=== PATIENT | female | born 1940 | race Caucasian/White ===

== ENCOUNTER 2022-05-23 23:53 | Outpatient (REF) | payer BC, SELFPAY ==
[2022-05-24 08:17] LABS: SARS PCR* ND (Negative)
[2022-05-24 08:18] LABS: PCR FLU A POSITIVE PCR FLU A (Negative); PCR FLU B Negative PCR FLU B (Negative)
== END 2022-05-23 23:54 | disposition home or self-care (01) ==
LOC: LAB 23:53
PROVIDERS: PCP Family Medicine; Visit Provider Nurse Practitioner Adult Health
DX: J10.1 Influenza due to other identified influenza virus with other respiratory manifestations (principal)
CPT/HCPCS: 87631

== ENCOUNTER 2022-06-22 17:23 | Outpatient (REF) | payer BC, SELFPAY ==
[2022-06-22 18:32] LABS: Basophils Percent Auto 0.2 % (0.0-3.0); Eosinophils Percent Auto 1.8 % (0.0-7.0); Hematocrit 38.3 % (33.0-51.0); Hemoglobin* 11.8 gm/dL (12.0-16.0); Immature Granulocytes Pct Auto 2.7 %; Lymphocytes Percent Auto 7.4 % (20-44); Mean Corpuscular HGB Conc 31 gm/dL (32-36); Mean Corpuscular Hemoglobin 24 pg (26-34); Mean Corpuscular Volume 78 fL (80-100); Monocytes Percent Auto 5.5 % (0.0-11.0); Neutrophils Percent Auto 82.4 % (42.0-72.0); Platelet Count* 606 K/uL (140-440); RDW Coefficient of Variation % 17.5 % (11.5-15.5); White Blood Count* 13.57 K/uL (4.50-11.00)
[2022-06-22 18:41] LABS: Chloride* 100 mmol/L (96-114); Potassium* 4.8 mmol/L (3.6-5.1); Sodium* 133 mmol/L (135-149)
[2022-06-22 18:44] LABS: Blood Urea Nitrogen* 48 mg/dL (7-30); Carbon Dioxide* 24 mmol/L (20-32); Creatinine* 1.2 mg/dL (0.5-1.5); Estimated Glomerular Filt Rate 45 ml/min
[2022-06-22 18:45] LABS: Calcium* 9.6 mg/dL (8.4-10.6); Glucose* 150 mg/dL (60-115); Phosphorus* 4.4 mg/dL (2.5-4.5); Slide Review Reflex No
== END 2022-06-22 17:24 | disposition home or self-care (01) ==
LOC: LAB 17:23
PROVIDERS: PCP Family Medicine; Visit Provider Nurse Practitioner Adult Health
DX: N18.9 Chronic kidney disease, unspecified (principal); R13.10 Dysphagia, unspecified
CPT/HCPCS: 36415; 80048; 82310; 83970; 84100; 85025

== ENCOUNTER 2022-06-30 14:21 | Outpatient (CLI) | payer BC, SELFPAY | END 2022-06-30 14:22 | disposition home or self-care (01) | LOC: AMB 07-04 09:34 | PROVIDERS: PCP Family Medicine; Visit Provider Family Medicine | DX: R10.9 Unspecified abdominal pain (principal) | CPT/HCPCS: A0425; A0427 ==

== ENCOUNTER 2022-06-30 14:51 | Emergency (ER) | payer BC, SELFPAY ==
[2022-06-30 14:55] VITALS: BP 145/71; PULSE 95; RESP 24; TEMP 36.6; O2SAT 97
--- NOTE | 2022-06-30 15:27 | ED.ABDPAIN ---
HPI - Abdominal Pain General Time Seen by Provider: 15:27 <Sakina Basurto MD - Last Filed: 07/02/22 11:24> Date Seen: 06/30/22 <Sakina Basurto MD - Last Filed: 07/02/22 11:24> Chief Complaint: Abdominal Pain <Sakina Basurto MD - Last Filed: 07/02/22 11:24> Stated Complaint: Uncontrolled pain <Sakina Basurto MD - Last Filed: 07/02/22 11:24> Time Seen by Provider: 06/30/22 15:26 <Sakina Basurto MD - Last Filed: 07/02/22 11:24> Source: patient, EMS and RN notes reviewed <Sakina Basurot MD - Last Filed: 07/02/22 11:24> Mode of arrival: EMS <Sakina Basurto MD - Last Filed: 07/02/22 11:24> Limitations: no limitations <Sakina Basurto MD - Last Filed: 07/02/22 11:24> History of Present Illness HPI narrative: Patient is an 81-year-old female brought in from [address] [place] [address] with complaint of pain from her shoulder, right chest down into her abdomen. She states that it is not hurting with movement of her shoulder. When I try to go in to talk to patient, she states she can not talk to me because her lips and mouth her too dry, she is requesting something to wet her mouth before she will talk to me. Then she states she has too much phlegm and cannot talk to me. Patient has gotten 2 tablets of 5 mg oxycodone as noted in nursing staff notes. 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 They did give her some fentanyl EN route. Patient was last seen on 06/28/2022. She has a complex medical history and was hospitalized with a stroke in March of 2022 involving the left parasagittal occipital lobe in the posterior cerebral artery territory with symptoms of confusion and vision changes. Currently on atorvastatin and rivaroxaban. I do note that she was initially started on dual antiplatelet therapy with aspirin and Plavix but see that she is on the NOAC currently. She had a PEG tube placed April 14 for dysphagia. She does have an adrenal tumor that may be causing some orthostatic hypotension, has seen Endocrinology in the past. They are considering starting phenoxybenzamine for this. She has chronic excessive phlegm thought to be due to her COPD. She also had influenza May 24 of this year and received Tamiflu. On the of this month, was showing fever and hypoxia they did start Augmentin 875 mg b.i.d. and ordered a chest x-ray. They did order supplemental p.r.n. oxygen again on June 27 she tells me she still having fevers the last 2 days up to 100. She is taking small sips of fluids but reportedly has a video swallow that is scheduled for later this week. 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 I see retroperitoneal lymphadenopathy listed in her chart, unknown when that last imaging was done but was thought to be suspicious for recurrence of adrenal tumor verses very indolent pheochromocytoma/adrenal cortical carcinoma, cognitive impairment, thrombophilia with history of PE/DVT, depression with anxiety, stage II pressure injury of buttock. <Sakina Basurto MD - Last Filed: 07/02/22 11:24> Related Data Home Medications: Home Medications Medication Instructions Recorded Confirmed acetaminophen 500 mg tablet 1,000 mg feeding tube 3XD PRN 06/30/22 06/30/22 albuterol sulfate 2.5 mg/3 mL 1 mg inhalation Q4H PRN 06/30/22 06/30/22 (0.083 %) solution for nebulization albuterol sulfate 90 mcg/actuation 2 puff inhalation Q4H PRN 06/30/22 06/30/22 aerosol inhaler (Ventolin HFA) amoxicillin 875 mg-potassium 1 tab PO BID 06/30/22 06/30/22 clavulanate 125 mg tablet carboxymethylcellulose sodium 1 % 2 drp ophthalmic (eye) TID PRN 06/30/22 06/30/22 eye drops (Artificial Tears (carboxymethylcellulose)) fluticasone propionate 50 1 spray intranasal DAILY 06/30/22 06/30/22 mcg/actuation nasal spray,suspension hydrocortisone acetate 10 % (80 1 appful WI 06/30/22 mg) rectal foam (Cortifoam) loperamide 2 mg capsule 2 mg feeding tube QID PRN 06/30/22 06/30/22 melatonin 3 mg tablet 3 mg feeding tube QPM PRN 06/30/22 06/30/22 oxycodone 5 mg tablet 5 mg feeding tube Q4H PRN 06/30/22 06/30/22 rivaroxaban 15 mg tablet (Xarelto) 15 mg PO DAILY 06/30/22 06/30/22 sertraline 50 mg tablet 50 mg feeding tube DAILY 06/30/22 06/30/22 sodium chloride 0.65 % nasal spray 2 spray intranasal Q4H PRN 06/30/22 06/30/22 aerosol (Saline Nasal) sodium chloride-hypochlorous acid 1 irrig topical BID 06/30/22 06/30/22 0.033 % irrigation solution (Vashe Wound Therapy) Previous Rx's Medication Instructions Recorded amoxicillin 400 mg-potassium 11 ml PO BID 3 days #66 mL 06/30/22 clavulanate 57 mg/5 mL oral suspension gabapentin 300 mg/6 mL (6 mL) oral 300 mg (6 mL) PO BID for pain #240 06/30/22 solution mL <Sakina Basurto MD - Last Filed: 07/02/22 11:24> Allergies/Adverse Reactions: Allergies Allergy/AdvReac Type Severity Reaction Status Date / Time sulfamethoxazole Allergy Severe Verified 06/30/22 15:20 [From Septra] trimethoprim [From Septra] Allergy Severe Verified 06/30/22 15:20 atorvastatin [From Lipitor] Allergy Mild Edema Verified 06/30/22 15:20 baclofen Allergy Mild Verified 06/30/22 15:20 ciprofloxacin Allergy Mild Altered Verified 06/30/22 15:20 Sense of Taste lovastatin [From Mevacor] Allergy Mild edema Verified 06/30/22 15:20 metronidazole [From Flagyl] Allergy Mild Hives Verified 06/30/22 15:20 tramadol Allergy Mild Hives Verified 06/30/22 15:20 <Sakina Basurto MD - Last Filed: 07/02/22 11:24> Review of Systems Status of ROS Reports: unobtainable due to mental status (Patient seemingly almost hysterical at times.) <Sakina Basurto MD - Last Filed: 07/02/22 11:24> [facility] Medical History: Medical History (Updated 06/30/22 @ 19:31 by Arturo Ramos MD) Hyperlipemia ?E78.5 - Hyperlipidemia, unspecified (ICD-10) Restless leg syndrome ?G25.81 - Restless legs syndrome (ICD-10) CKD (chronic kidney disease) stage 3, GFR 30-59 ml/min ?N18.30 - Chronic kidney disease, stage 3 unspecified (ICD-10) Mild cognitive impairment of uncertain or unknown etiology ?G31.84 - Mild cognitive impairment of uncertain or unknown etiology (ICD-10) Ventral hernia ?K43.9 - Ventral hernia without obstruction or gangrene (ICD-10) Diplopia ?H53.2 - Diplopia (ICD-10) Postprocedural adrenal medullary hypofunction ?E89.6 - Postprocedural adrenocortical (-medullary) hypofunction (ICD-10) Personal history of pulmonary embolism ?Z86.711 - Personal history of pulmonary embolism (ICD-10) Secondary hyperparathyroidism of renal origin ?N25.81 - Secondary hyperparathyroidism of renal origin (ICD-10) 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-10) GERD without esophagitis ?K21.9 - Gastro-esophageal reflux disease without esophagitis (ICD-10) Candidal stomatitis ?B37.0 - Candidal stomatitis (ICD-10) Pressure ulcer ?L89.90 - Pressure ulcer of unspecified site, unspecified stage (ICD-10) Ulcerative rectosigmoiditis with rectal bleeding ?K51.311 - Ulcerative (chronic) rectosigmoiditis with rectal bleeding (ICD-10) Dysphagia ?R13.10 - Dysphagia, unspecified (ICD-10) Anxiety ?F41.9 - Anxiety disorder, unspecified (ICD-10) CVA (cerebral vascular accident) ?I63.9 - Cerebral infarction, unspecified (ICD-10) COPD (chronic obstructive pulmonary disease) ?J44.9 - Chronic obstructive pulmonary disease, unspecified (ICD-10) <Sakina Basurto MD - Last Filed: 07/02/22 11:24> Surgical History: Surgical History (Updated 05/11/23 @ 16:11 by Codi Zuñiga RN) PEG (percutaneous endoscopic gastrostomy) status ?Z93.1 - Gastrostomy status (ICD-10) <Sakina Basurto MD - Last Filed: 07/02/22 11:24> Social History: Social History Smoking Status: Never smoker Do you use any of these nicotine containing products: None Second hand tobacco smoke exposure: No How often do you have a drink containing alcohol: never AUDIT-C Alcohol total score: 0 Non-prescribed substance use: denies use <Sakina Basurto MD - Last Filed: 07/02/22 11:24> Exam Const: Vital Signs, click to edit/add: Vital Signs - 24 hr 06/30/22 14:55 06/30/22 18:30 06/30/22 18:36 Temperature 98 F Pulse Rate [Right Pulse Oximeter] 95 89 Respiratory Rate 24 18 Blood Pressure [Ri ght Upper Arm] 145/71 H 150/64 H Pulse Oximetry 97 96 95 Oxygen Delivery Me thod Room Air Room Air The very animated, almost hysterical at times. Pupils equal round reactive, sclera clear. Symmetrical facial function. Seems to be edentulous, mildly dry mucous membranes, lips without any cracking. Neck is supple no masses. Does not give me good respiratory exam but do not hear any wheezing crackles, definitely has kyphosis. CV regular rate and rhythm no murmur. Abdomen has middle per 2 rinse which I a do not know if it is a large hernia but feel it is probably diastasis rectus that is significant. She complains of significant pain when I palpate anywhere in her abdomen. Bowel sounds are increased in intensity but I do not hear any rushing. I can mobilize her shoulder and she does not complaining of any pain, no palpable tenderness over the shoulder anterior chest wall. No lower extremities. Seems to be moving all of her arms and legs equally. <Sakina Basurto MD - Last Filed: 07/02/22 11:24> Vital Signs, click to edit/add: Vital Signs - 24 hr 06/30/22 14:55 06/30/22 18:30 06/30/22 18:36 Temperature 98 F Pulse Rate [Right Pulse Oximeter] 95 89 Respiratory Rate 24 18 Blood Pressure [Ri ght Upper Arm] 145/71 H 150/64 H Pulse Oximetry 97 96 95 Oxygen Delivery Me thod Room Air Room Air <Arturo Ramos MD - Last Filed: 07/01/22 04:27> Course Course Hospital Course: Patient has a very complex medical history, will proceed with CT of her chest abdomen pelvis given the recent concern of fever and respiratory symptoms as well as her increased complaint of abdominal pain overnight. She does tell me that the abdominal pain is worse than what is listed as her chronic abdominal pain in her chart. We did find notation where she complains of chronic right abdominal pain. Will get a full complement of labs. She will also be considered for cardiac etiology with the right shoulder pain. It certainly could be that the right shoulder pain is referred pain from the abdomen. Patient is on a NOAC, if there is any significant intra-abdominal pathology that might require surgery, this patient is not a candidate for us. She tells me she had her feeding tube placed at [facility]. Will be signing care over to my partner Dr. Ramos. <Sakina Basurto MD - Last Filed: 07/02/22 11:24> Vital Signs Vital signs: Initial Vital Signs Temperature 98 F 06/30/22 14:55 Temperature Source Oral 06/30/22 14:55 Pulse Rate 95 06/30/22 14:55 Pulse Rhythm Regular 06/30/22 14:55 Pulse Strength 3+ Normal 06/30/22 14:55 Respiratory Rate 24 06/30/22 14:55 Blood Pressure 145/71 H 06/30/22 14:55 Blood Pressure Mean 95 06/30/22 14:55 Blood Pressure Position Semi-Fowlers 06/30/22 14:55 Pulse Oximetry 97 06/30/22 14:55 Oxygen Delivery Method Room Air 06/30/22 14:55 Vital Signs Temperature 98 F 06/30/22 14:55 Pulse Rate 95 06/30/22 14:55 Respiratory Rate 24 06/30/22 14:55 Blood Pressure 145/71 H 06/30/22 14:55 Pulse Oximetry 97 06/30/22 14:55 Oxygen Delivery Method Room Air 06/30/22 14:55 Temperature 98 F 06/30/22 14:55 Pulse Rate 89 05/11/23 18:36 Respiratory Rate 18 06/30/22 18:36 Blood Pressure 150/64 H 06/30/22 18:36 Pulse Oximetry 95 06/30/22 18:36 Oxygen Delivery Method Room Air 06/30/22 18:36 <Sakina Basurto MD - Last Filed: 07/02/22 11:24> Initial Vital Signs Temperature 98 F 06/30/22 14:55 Temperature Source Oral 06/30/22 14:55 Pulse Rate 95 06/30/22 14:55 Pulse Rhythm Regular 06/30/22 14:55 Pulse Strength 3+ Normal 06/30/22 14:55 Respiratory Rate 24 06/30/22 14:55 Blood Pressure 145/71 H 06/30/22 14:55 Blood Pressure Mean 95 06/30/22 14:55 Blood Pressure Position Semi-Fowlers 06/30/22 14:55 Pulse Oximetry 97 06/30/22 14:55 Oxygen Delivery Method Room Air 06/30/22 14:55 Vital Signs Temperature 98 F 06/30/22 14:55 Pulse Rate 95 06/30/22 14:55 Respiratory Rate 24 06/30/22 14:55 Blood Pressure 145/71 H 06/30/22 14:55 Pulse Oximetry 97 06/30/22 14:55 Oxygen Delivery Method Room Air 06/30/22 14:55 Temperature 98 F 06/30/22 14:55 Pulse Rate 89 06/30/22 18:36 Respiratory Rate 18 06/30/22 18:36 Blood Pressure 150/64 H 06/30/22 18:36 Pulse Oximetry 95 06/30/22 18:36 Oxygen Delivery Method Room Air 06/30/22 18:36 <Arturo Ramos MD - Last Filed: 07/01/22 04:27> MDM - Abdominal Pain MDM Narrative Medical decision making narrative: Rachel -- received Ms. Zapata in handoff at change of shift. Pending CT abdomen pelvis. White count somewhat elevated at 14.2 and was similarly elevated 4 days ago when Augmentin was initiated. BUN of 48 creatinine 1.2 urinalysis still pending. EKG noted here by my read normal sinus rhythm rate of 84; do not see acute ischemic changes. CT scan with contrast of chest abdomen pelvis Ordering Physician: Sakina Basurto.D. Date of Service: 06/30/22 Procedure(s): CT chest abdomen pelv w con Accession Number(s): [id number] cc: Alfonzo Webb M.D.; Sakina Basurto M.D.~ For Patients:? As a result of the Cures Act, medical imaging exams and procedure reports are released immediately into your electronic medical record.? You may view this report before your referring provider.? If you have questions, please contact your health care provider. INDICATION: Pneumonia, increased abdominal pain TECHNIQUE: CT chest, abdomen and pelvis acquired with 55 cc Isovue 370 intravenous contrast. COMPARISON: None. FINDINGS: CHEST: Cardiovascular structures: No pericardial effusion. Severe coronary atherosclerosis. 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 Mediastinum and mireya: Precarinal lymph nodes measure up to 18 millimeters in short axis. Right hilar lymph nodes measure up to 12 millimeters in short axis. Left hilar lymph nodes measure 15 millimeters in short axis. Subcarinal lymph nodes measure 15 millimeters in short axis. Lungs and pleura: Trace right pleural effusion. Centrilobular emphysema with minimal centrilobular nodularity within the right upper lobe. More focal consolidation in the bilateral lower lobes. Chest wall and axilla: No mass or adenopathy.? Bones: No suspicious bone lesions.? Unremarkable for age.? ABDOMEN AND PELVIS: Liver: Unremarkable.? Gallbladder and bile ducts: Status post cholecystectomy. Pancreas: Mild pancreatic atrophy. Spleen: Unremarkable.? Adrenal glands: Status post right adrenalectomy. Left adrenal nodule measuring 11 millimeters in short axis. Kidneys: Bilateral renal cortical thinning without evidence of hydronephrosis. Subcentimeter hypodensities in the right kidney which is too small for characterization. GI tract: Gastrostomy tube at level of the stomach with the stomach decompressed. Ventral supraumbilical hernia with colon in the hernia sac without evidence of obstruction. No dilated loops of large or small intestine. Mild colonic diverticulosis. Vascular structures: Dilation of the abdominal aorta measuring 4.1 centimeters at the level of the aortic hiatus. This tapers to 2.9 centimeters at the level of the SMA origin. Aorta measures 2.9 centimeters above the bifurcation. Pelvic Organs: Air within the bladder lumen. Status posthysterectomy. No adnexal mass. Bones: Status post right total hip replacement. Degenerative disc disease lumbar spine. IMPRESSION: 1. Trace right pleural effusion with consolidation of bilateral lower lobes suspicious for pneumonia. 2. Air within the bladder lumen. Differential diagnosis includes cystitis and recent instrumentation. 3. Ventral supraumbilical hernia with colon in the hernia sac although without evidence of obstruction. 4. Fusiform enlargement of the abdominal aorta reaching 4.1 centimeters at the level of the aortic hiatus. 5. Mediastinal and bilateral hilar adenopathy. This is indeterminate although suspect secondary to the underlying pulmonary process. 6. Other incidental findings as detailed above. Ms. Zapata had requested more pain medication during her time. Did give 1 dose of fentanyl. I reviewed these findings, or lack there of with Ms. Zapata. I think Augmentin is still appropriate though would extend course a little bit for these pulmonary findings. Should cover bladder issue too I suppose. Somewhat hypesthetic in exam still complaining of right sided pain from her shoulder all the way down to her right hip. No discrete area of tenderness. Discussed regional nature of this pain and offered reassurance. Ultimately she did except no clear cause and anticipated discharge. Seemed suddenly improved and less demonstrative. See patient discharge plan <Arturo Ramos MD - Last Filed: 07/01/22 04:27> Lab Data Attestation: I reviewed the patient's lab results. <Arturo Ramos MD - Last Filed: 07/01/22 04:27> Labs: Lab Results 06/30/22 06/30/22 06/30/22 Range/Units 15:41 15:55 15:57 WBC 14.20 H (4.50-11.00) K/uL RBC 4.72 (4.00-5.20) m/uL Hgb 11.3 L (12.0-16.0) gm/dL Hct 36.8 (33.0-51.0) % MCV 78 L (80-100) fL MCH 24 L (26-34) pg MCHC 31 L (32-36) gm/dL RDW Coeff of Gina 17.4 H (11.5-15.5) % Plt Count 465 H (140-440) K/uL Neut % (Auto) 87.8 H (42.0-72.0) % Lymph % (Auto) 4.9 L (20-44) % Letcher % (Auto) 5.9 (0.0-11.0) % Eos % (Auto) 0.8 (0.0-7.0) % Baso % (Auto) 0.1 (0.0-3.0) % Neut # (Auto) 12.50 H (1.7-7.0) K/uL Lymph # (Auto) 0.70 L (0.90-2.90) K/uL Letcher # (Auto) 0.80 (0.00-0.90) K/UL Eos # (Auto) 0.10 (0.00-0.50) K/uL Baso # (Auto) 0.00 (0.00-0.30) K/uL VBG pH 7.463 H (7.32-7.43) VBG pCO2 33 L (40-50) mmHG VBG pO2 27.0 (25-47) mmHG VBG HCO3 23 (21-28) mmol/L Sodium 134 L (135-149) mmol/L Potassium 4.4 (3.6-5.1) mmol/L Chloride 105 (96-114) mmol/L Carbon Dioxide 20 (20-32) mmol/L BUN 48 H (7-30) mg/dL Creatinine 1.2 (0.5-1.5) mg/dL Estimated GFR 45 ml/min Glucose 115 (60-115) mg/dL Lactate 0.8 (0.5-1.9) mmol/L Calcium 9.8 (8.4-10.6) mg/dL Total Bilirubin 0.6 (0.1-1.5) mg/dL AST 17 (12-35) U/L ALT 17 (4-35) U/L Alkaline Phosphatase 85 (40-150) U/L Troponin I < 0.01 L (0.01-0.04) ng/mL C-Reactive Protein 8.9 H (0.5-1.0) mg/dL Total Protein 6.9 (6.0-8.3) g/dL Albumin 3.9 (3.3-5.0) g/dL Lipase 198 (23-300) U/L Procalcitonin 0.38 (<0.50) ng/mL Urine Color Yellow (Yellow) Urine Appearance Clear (Clear) Urine pH 8.5 (5.0-8.5) Ur Specific Harrison 1.020 (1.000-1.030) Urine Protein 2+ A (Negative) Urine Glucose (UA) Negative (Negative) Urine Ketones Negative (Negative) Urine Blood Negative (Negative) Urine Nitrite Negative (Negative) Urine Bilirubin Negative (Negative) Urine Urobilinogen 0.2 (0.2-1.0) Ur Leukocyte Esterase Trace A (Negative) Urine RBC 0-2 (0-2) Urine WBC 0-2 (0-5) Ur Squamous Epith Cells None (None-Few) Urine Bacteria None (None) SARS-CoV-2 (PCR) Negative SARS-CoV-2 (Negative) Influenza Type A (PCR) Negative PCR FLU A (Negative) Influenza Type B (PCR) Negative PCR FLU B (Negative) RSV (PCR) Negative PCR RSV (Negative) Lab Acknowledgement Test Added <Sakina Basurto MD - Last Filed: 07/02/22 11:24> Lab Results 06/30/22 06/30/22 06/30/22 Range/Units 15:41 15:55 15:57 WBC 14.20 H (4.50-11.00) K/uL RBC 4.72 (4.00-5.20) m/uL Hgb 11.3 L (12.0-16.0) gm/dL Hct 36.8 (33.0-51.0) % MCV 78 L (80-100) fL MCH 24 L (26-34) pg MCHC 31 L (32-36) gm/dL RDW Coeff of Gina 17.4 H (11.5-15.5) % Plt Count 465 H (140-440) K/uL Neut % (Auto) 87.8 H (42.0-72.0) % Lymph % (Auto) 4.9 L (20-44) % Letcher % (Auto) 5.9 (0.0-11.0) % Eos % (Auto) 0.8 (0.0-7.0) % Baso % (Auto) 0.1 (0.0-3.0) % Neut # (Auto) 12.50 H (1.7-7.0) K/uL Lymph # (Auto) 0.70 L (0.90-2.90) K/uL Letcher # (Auto) 0.80 (0.00-0.90) K/UL Eos # (Auto) 0.10 (0.00-0.50) K/uL Baso # (Auto) 0.00 (0.00-0.30) K/uL VBG pH 7.463 H (7.32-7.43) VBG pCO2 33 L (40-50) mmHG VBG pO2 27.0 (25-47) mmHG VBG HCO3 23 (21-28) mmol/L Sodium 134 L (135-149) mmol/L Potassium 4.4 (3.6-5.1) mmol/L Chloride 105 (96-114) mmol/L Carbon Dioxide 20 (20-32) mmol/L BUN 48 H (7-30) mg/dL Creatinine 1.2 (0.5-1.5) mg/dL Estimated GFR 45 ml/min Glucose 115 (60-115) mg/dL Lactate 0.8 (0.5-1.9) mmol/L Calcium 9.8 (8.4-10.6) mg/dL Total Bilirubin 0.6 (0.1-1.5) mg/dL AST 17 (12-35) U/L ALT 17 (4-35) U/L Alkaline Phosphatase 85 (40-150) U/L Troponin I < 0.01 L (0.01-0.04) ng/mL C-Reactive Protein 8.9 H (0.5-1.0) mg/dL Total Protein 6.9 (6.0-8.3) g/dL Albumin 3.9 (3.3-5.0) g/dL Lipase 198 (23-300) U/L Procalcitonin 0.38 (<0.50) ng/mL Urine Color Yellow (Yellow) Urine Appearance Clear (Clear) Urine pH 8.5 (5.0-8.5) Ur Specific Harrison 1.020 (1.000-1.030) Urine Protein 2+ A (Negative) Urine Glucose (UA) Negative (Negative) Urine Ketones Negative (Negative) Urine Blood Negative (Negative) Urine Nitrite Negative (Negative) Urine Bilirubin Negative (Negative) Urine Urobilinogen 0.2 (0.2-1.0) Ur Leukocyte Esterase Trace A (Negative) Urine RBC 0-2 (0-2) Urine WBC 0-2 (0-5) Ur Squamous Epith Cells None (None-Few) Urine Bacteria None (None) SARS-CoV-2 (PCR) Negative SARS-CoV-2 (Negative) Influenza Type A (PCR) Negative PCR FLU A (Negative) Influenza Type B (PCR) Negative PCR FLU B (Negative) RSV (PCR) Negative PCR RSV (Negative) Lab Acknowledgement Test Added <Arturo Ramos MD - Last Filed: 07/01/22 04:27> Discharge Plan Discharge Clinical Impression: Pain, Pneumonia <Sakina Basurto MD - Last Filed: 07/02/22 11:24> Patient Disposition: Home w/ Parent or Adult <Sakina Basurto MD - Last Filed: 07/02/22 11:24> Condition: Improved <Sakina Basurto MD - Last Filed: 07/02/22 11:24> Additional Instructions: I am not exactly sure why you're having pain. It might be related to this pneumonia which has amplified your perceptions of pain. If this continues perhaps a medication like gabapentin would be appropriate. I would discuss this with your primary care providers. In the meantime you do have oxycodone available. Again take care not to become constipated. Would continue your Augmentin at this time to complete a total course of 10 days. I have ordered an extra 3 days for you. <Sakina Basurto MD - Last Filed: 07/02/22 11:24> Prescriptions: New gabapentin 300 mg/6 mL (6 mL) solution 300 mg PO BID Qty: 240 0RF amoxicillin-pot clavulanate 400-57 mg/5 mL suspension for reconstitution 11 ml PO BID 3 Days Qty: 66 0RF Rx Instructions: Add to current Augmentin prescription to complete a total of 10 days No Action albuterol sulfate 2.5 mg /3 mL (0.083 %) solution for nebulization 1 mg inhalation Q4H PRN loperamide 2 mg capsule 2 mg feeding tube QID PRN melatonin 3 mg tablet 3 mg feeding tube QPM PRN acetaminophen 500 mg tablet 1,000 mg feeding tube 3XD PRN albuterol sulfate [Ventolin HFA] 90 mcg/actuation HFA aerosol inhaler 2 puff inhalation Q4H PRN fluticasone propionate 50 mcg/actuation spray,suspension 1 spray INTRANASAL DAILY sertraline 50 mg tablet 50 mg feeding tube DAILY amoxicillin-pot clavulanate 875-125 mg tablet 1 tab PO BID oxycodone 5 mg tablet 5 mg feeding tube Q4H PRN Saline Nasal 0.65 % aerosol,spray 2 spray INTRANASAL Q4H PRN Cortifoam 10 % (80 mg) foam 1 appful WI Xarelto 15 mg tablet 15 mg PO DAILY Vashe Wound Therapy 0.033 % irrigation solution 1 irrig topical BID Artificial Tears (cmc) 1 % drops 2 drp ophthalmic (eye) TID PRN <Sakina Basurto MD - Last Filed: 07/02/22 11:24> Follow Up/Referrals: Alfonzo Webb MD [Primary Care Provider] - <Sakina Basurto MD - Last Filed: 07/02/22 11:24> [facility] <Sakina Basurto MD - Last Filed: 07/02/22 11:24>
--- NOTE | 2022-06-30 15:32 | CRLHL7_ITS ---
For Patients: As a result of the Century Cures Act, medical imaging exams and procedure reports are released immediately into your electronic medical record. You may view this report before your referring provider. If you have questions, please contact your health care provider. INDICATION: Pneumonia, increased abdominal pain TECHNIQUE: CT chest, abdomen and pelvis acquired with 55 cc Isovue 370 intravenous contrast. COMPARISON: None. FINDINGS: CHEST: Cardiovascular structures: No pericardial effusion. Severe coronary atherosclerosis. 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 Mediastinum and mireya: Precarinal lymph nodes measure up to 18 millimeters in short axis. Right hilar lymph nodes measure up to 12 millimeters in short axis. Left hilar lymph nodes measure 15 millimeters in short axis. Subcarinal lymph nodes measure 15 millimeters in short axis. Lungs and pleura: Trace right pleural effusion. Centrilobular emphysema with minimal centrilobular nodularity within the right upper lobe. More focal consolidation in the bilateral lower lobes. Chest wall and axilla: No mass or adenopathy. Bones: No suspicious bone lesions. Unremarkable for age. ABDOMEN AND PELVIS: Liver: Unremarkable. Gallbladder and bile ducts: Status post cholecystectomy. Pancreas: Mild pancreatic atrophy. Spleen: Unremarkable. Adrenal glands: Status post right adrenalectomy. Left adrenal nodule measuring 11 millimeters in short axis. Kidneys: Bilateral renal cortical thinning without evidence of hydronephrosis. Subcentimeter hypodensities in the right kidney which is too small for characterization. GI tract: Gastrostomy tube at level of the stomach with the stomach decompressed. Ventral supraumbilical hernia with colon in the hernia sac without evidence of obstruction. No dilated loops of large or small intestine. Mild colonic diverticulosis. Vascular structures: Dilation of the abdominal aorta measuring 4.1 centimeters at the level of the aortic hiatus. This tapers to 2.9 centimeters at the level of the SMA origin. Aorta measures 2.9 centimeters above the bifurcation. Pelvic Organs: Air within the bladder lumen. Status posthysterectomy. No adnexal mass. Bones: Status post right total hip replacement. Degenerative disc disease lumbar spine. IMPRESSION: 1. Trace right pleural effusion with consolidation of bilateral lower lobes suspicious for pneumonia. 2. Air within the bladder lumen. Differential diagnosis includes cystitis and recent instrumentation. 3. Ventral supraumbilical hernia with colon in the hernia sac although without evidence of obstruction. 4. Fusiform enlargement of the abdominal aorta reaching 4.1 centimeters at the level of the aortic hiatus. 5. Mediastinal and bilateral hilar adenopathy. This is indeterminate although suspect secondary to the underlying pulmonary process. 6. Other incidental findings as detailed above. Please note that all CT scans at this facility use dose modulation, iterative reconstruction, and/or weight-based dosing when appropriate to reduce radiation dose to as low as reasonably achievable. Dictated by Aftab Machado MD @ 06/30/2022 6:41:19 PM (Electronically Signed)
--- NOTE | 2022-06-30 15:46 | ED.NURSE ---
Tube feeding stopped. PEG tube flushed w/ 30cc of water. Pt provided w/ oral swabs and educated that she will remain NPO until MD gives okay.
[2022-06-30 16:00] LABS: HCO3 VBG 23 mmol/L (21-28); Lactate* 0.8 mmol/L (0.5-1.9); PCO2 VBG 33 mmHG (40-50); pH VBG 7.463 (7.32-7.43)
[2022-06-30 16:04] LABS: Basophils Percent Auto 0.1 % (0.0-3.0); Eosinophils Percent Auto 0.8 % (0.0-7.0); Hematocrit 36.8 % (33.0-51.0); Hemoglobin* 11.3 gm/dL (12.0-16.0); Immature Granulocytes Pct Auto 0.5 %; Lymphocytes Percent Auto 4.9 % (20-44); Mean Corpuscular HGB Conc 31 gm/dL (32-36); Mean Corpuscular Hemoglobin 24 pg (26-34); Mean Corpuscular Volume 78 fL (80-100); Monocytes Percent Auto 5.9 % (0.0-11.0); Neutrophils Percent Auto 87.8 % (42.0-72.0); Platelet Count* 465 K/uL (140-440); RDW Coefficient of Variation % 17.4 % (11.5-15.5); Red Blood Count 4.72 m/uL (4.00-5.20)
[2022-06-30 16:10] LABS: Slide Review Reflex No
[2022-06-30 16:22] LABS: Albumin* 3.9 g/dL (3.3-5.0); Chloride* 105 mmol/L (96-114); Sodium* 134 mmol/L (135-149)
[2022-06-30 16:23] LABS: Potassium* 4.4 mmol/L (3.6-5.1)
[2022-06-30 16:24] LABS: Creatinine* 1.2 mg/dL (0.5-1.5); Estimated Glomerular Filt Rate 45 ml/min
[2022-06-30 16:25] LABS: Alkaline Phosphatase* 85 U/L (40-150); Aspartate Amino Transferase* 17 U/L (12-35); Bilirubin Total* 0.6 mg/dL (0.1-1.5); Carbon Dioxide* 20 mmol/L (20-32); Lipase* 198 U/L (23-300); Total Protein* 6.9 g/dL (6.0-8.3)
[2022-06-30 16:26] LABS: Alanine Aminotransferase* 17 U/L (4-35); Blood Urea Nitrogen* 48 mg/dL (7-30); Calcium* 9.8 mg/dL (8.4-10.6); Glucose* 115 mg/dL (60-115)
[2022-06-30 16:28] LABS: C Reactive Protein* 8.9 mg/dL (0.5-1.0)
[2022-06-30 16:40] LABS: Troponin I* < 0.01 ng/mL (0.01-0.04)
[2022-06-30 16:42] LABS: PCR FLU A Negative PCR FLU A (Negative); PCR FLU B Negative PCR FLU B (Negative); PCR RSV Negative PCR RSV (Negative)
[2022-06-30 16:42] LABS: Procalcitonin* 0.38 ng/mL (<0.50)
[2022-06-30 16:43] LABS: SARS PCR* Negative SARS-CoV-2 (Negative)
[2022-06-30 17:31] LABS: Appearance Urine Clear (Clear); Bilirubin Urine Negative (Negative); Blood Urine Negative (Negative); Color Urine Yellow (Yellow); Glucose Urine Negative (Negative); Ketones Urine Negative (Negative); Leukocyte Esterase Urine Trace (Negative); Nitrite Urine Negative (Negative); Protein Urine 2+ (Negative); Urobilinogen Urine 0.2 (0.2-1.0); pH Urine 8.5 (5.0-8.5)
[2022-06-30 17:41] LABS: RBC Urine 0-2 (0-2); WBC Urine 0-2 (0-5)
[2022-06-30 18:30] VITALS: O2SAT 96
[2022-06-30] MEDS: fentaNYL 100 MCG/2 ML inj 25 MCG IVP (18:30)
[2022-06-30 18:36] VITALS: BP 150/64; PULSE 89; RESP 18; O2SAT 95
--- NOTE | 2022-06-30 19:45 | ED.NURSE ---
Call to [facility] - updated on pt dispo and follow-up. Verbalized understanding.
== END 2022-06-30 19:54 | disposition home or self-care (01) ==
PROVIDERS: Emergency Provider Family Medicine; PCP Family Medicine
DX: J18.9 Pneumonia, unspecified organism (principal)
CPT/HCPCS: 36415; 71260; 74177; 80053; 81001; 82803; 83605; 83690; 84145; 84484; 85025; 86140; 87631; 93005; 94761; 96374; 99284; 99285; J3010; Q9967

== ENCOUNTER 2022-07-27 14:18 | Outpatient (CLI) | payer BC, SELFPAY | END 2022-07-27 14:19 | disposition home or self-care (01) | LOC: WOUND 14:18 | PROVIDERS: PCP Family Medicine; Visit Provider Surgery | DX: L89.153 Pressure ulcer of sacral region, stage 3 (principal); L89.323 Pressure ulcer of left buttock, stage 3; L89.313 Pressure ulcer of right buttock, stage 3; L02.31 Cutaneous abscess of buttock; J44.9 Chronic obstructive pulmonary disease, unspecified; Z79.01 Long term (current) use of anticoagulants; Z86.718 Personal history of other venous thrombosis and embolism; R54 Age-related physical debility | CPT/HCPCS: 10060; 11042; 87070; 87186; 97597 ==

== ENCOUNTER 2022-08-02 13:30 | Outpatient (CLI) | payer BC, SELFPAY | END 2022-08-02 13:31 | disposition home or self-care (01) | LOC: WOUND 13:30 | PROVIDERS: PCP Family Medicine; Visit Provider Nurse Practitioner Family | DX: L89.313 Pressure ulcer of right buttock, stage 3 (principal) | CPT/HCPCS: 11042 ==

== ENCOUNTER 2022-08-16 12:21 | Outpatient (CLI) | payer BC, SELFPAY | END 2022-08-16 12:22 | disposition home or self-care (01) | LOC: WOUND 12:21 | PROVIDERS: PCP Family Medicine; Visit Provider Family Medicine | DX: L89.153 Pressure ulcer of sacral region, stage 3 (principal) | CPT/HCPCS: 11042 ==

== ENCOUNTER 2022-08-30 14:07 | Outpatient (CLI) | payer BC, SELFPAY | END 2022-08-30 14:08 | disposition home or self-care (01) | LOC: WOUND 14:07 | PROVIDERS: PCP Family Medicine; Visit Provider Nurse Practitioner Family | DX: L89.153 Pressure ulcer of sacral region, stage 3 (principal); L89.323 Pressure ulcer of left buttock, stage 3; L89.313 Pressure ulcer of right buttock, stage 3 | CPT/HCPCS: 99213 ==

== ENCOUNTER 2022-10-05 08:39 | Outpatient (CLI) | payer BC, SELFPAY ==
--- NOTE | 2022-10-05 09:15 | CRLHL7_ITS ---
For Patients: As a result of the Century Cures Act, medical imaging exams and procedure reports are released immediately into your electronic medical record. You may view this report before your referring provider. If you have questions, please contact your health care provider. INDICATION: Dysphagia TECHNIQUE: Modified barium swallow. Fluoroscopic time 0.55 minutes. COMPARISON: None FINDINGS/IMPRESSION: Postoperative changes are present with gaseous distention of the oropharynx. There is little to no movement of the epiglottis. The posterior tongue base is primarily responsible for swallowing. No obstruction. Very little contrast was tolerated by the patient. Dictated by Arturo Mauricio MD @ 10/05/2022 9:24:39 AM (Electronically Signed)
== END 2022-10-05 08:40 | disposition home or self-care (01) ==
PROVIDERS: PCP Family Medicine; Visit Provider Family Medicine
DX: R13.10 Dysphagia, unspecified (principal)
CPT/HCPCS: 74230; 92611

== ENCOUNTER 2022-10-12 13:54 | Outpatient (CLI) | payer BC, SELFPAY | END 2022-10-12 13:55 | disposition home or self-care (01) | LOC: WOUND 13:54 | PROVIDERS: PCP Family Medicine; Visit Provider Surgery | DX: L89.153 Pressure ulcer of sacral region, stage 3 (principal); R54 Age-related physical debility | CPT/HCPCS: 11042; 99212 ==

== ENCOUNTER 2022-10-18 10:12 | Outpatient (CLI) | payer BC, SELFPAY | END 2022-10-18 10:13 | disposition home or self-care (01) | LOC: WOUND 10:12 | PROVIDERS: PCP Family Medicine; Visit Provider Nurse Practitioner Family | DX: L89.153 Pressure ulcer of sacral region, stage 3 (principal) | CPT/HCPCS: 97597 ==

== ENCOUNTER 2022-11-08 15:11 | Outpatient (CLI) | payer BC, SELFPAY | END 2022-11-08 15:12 | disposition home or self-care (01) | PROVIDERS: PCP Family Medicine; Visit Provider Nurse Practitioner Family | DX: L89.153 Pressure ulcer of sacral region, stage 3 (principal); R54 Age-related physical debility | CPT/HCPCS: 97602; 99213 ==

== ENCOUNTER 2022-11-15 14:20 | Outpatient (CLI) | payer BC, SELFPAY | END 2022-11-15 14:21 | disposition home or self-care (01) | LOC: WOUND 11-22 12:13 | PROVIDERS: Visit Provider Nurse Practitioner Family | DX: L89.153 Pressure ulcer of sacral region, stage 3 (principal); R54 Age-related physical debility | CPT/HCPCS: 97602; 99212 ==

== ENCOUNTER 2022-11-22 15:17 | Outpatient (CLI) | payer BC, SELFPAY | END 2022-11-22 15:18 | disposition home or self-care (01) | LOC: WOUND 15:17 | PROVIDERS: Visit Provider Nurse Practitioner Family | DX: L89.153 Pressure ulcer of sacral region, stage 3 (principal); R54 Age-related physical debility | CPT/HCPCS: 99212 ==

== ENCOUNTER 2023-04-13 12:49 | Outpatient (REF) | payer BC, SELFPAY ==
[2023-04-13 13:04] LABS: Basophils Absolute Auto 0.02 K/uL (0.00-0.30); Basophils Percent Auto 0.3 % (0.0-3.0); Hematocrit 43.6 % (33.0-51.0); Hemoglobin* 13.5 gm/dL (12.0-16.0); Immature Granulocytes Abs Auto 0.01 K/uL (0.00-0.30); Immature Granulocytes Pct Auto 0.1 %; Lymphocytes Percent Auto 17.2 % (20-44); Mean Corpuscular HGB Conc 31 gm/dL (32-36); Mean Corpuscular Hemoglobin 26 pg (26-34); Mean Corpuscular Volume 85 fL (80-100); Monocytes Percent Auto 6.1 % (0.0-11.0); Neutrophils Percent Auto 73.3 % (42.0-72.0); Platelet Count* 209 K/uL (140-440); RDW Coefficient of Variation % 16.8 % (11.5-15.5); Red Blood Count 5.13 m/uL (4.00-5.20); White Blood Count* 6.68 K/uL (4.50-11.00)
[2023-04-13 13:06] LABS: Slide Review Reflex No
[2023-04-13 13:16] LABS: Chloride* 104 mmol/L (96-114); Potassium* 4.8 mmol/L (3.6-5.1); Sodium* 139 mmol/L (135-149)
[2023-04-13 13:19] LABS: Anion Gap 11 mEq/L (7-15); Blood Urea Nitrogen* 64 mg/dL (7-30); Carbon Dioxide* 24 mmol/L (20-32); Creatinine* 1.2 mg/dL (0.5-1.5); Estimated Glomerular Filt Rate 45 ml/min
[2023-04-13 13:20] LABS: Calcium* 10.1 mg/dL (8.4-10.6); Glucose* 126 mg/dL (60-115)
== END 2023-04-13 12:50 | disposition home or self-care (01) ==
LOC: LAB 12:49
PROVIDERS: PCP Family Medicine
DX: N18.9 Chronic kidney disease, unspecified (principal); I10 Essential (primary) hypertension; D64.9 Anemia, unspecified
CPT/HCPCS: 36415; 80048; 85025

== ENCOUNTER 2023-09-11 10:30 | Outpatient (CLI) | payer BC, SELFPAY | END 2023-09-11 10:31 | disposition home or self-care (01) | LOC: AMB 09-12 22:31 | PROVIDERS: PCP Family Medicine; Visit Provider Emergency Medicine | DX: R10.9 Unspecified abdominal pain (principal) | CPT/HCPCS: A0425; A0427 ==

== ENCOUNTER 2023-09-11 10:53 | Emergency (ER) | payer BC, SELFPAY ==
[2023-09-11] VITALS (11 sets, daily range): BP systolic 115–144; BP diastolic 56–86; PULSE 70–90; RESP 18; TEMP 37; O2SAT 93–99
--- NOTE | 2023-09-11 11:19 | ED.GENADULT ---
HPI - General Adult General Date Seen: 09/11/23 Chief complaint: Abdominal Pain Stated complaint: Abdominal pain Time Seen by Provider: 09/11/23 11:02 History of Present Illness HPI narrative: This is an 82-year-old female with a past medical history previous ventral hernia and right upper quadrant hernia, GERD, ulcerative rectosigmoiditis, previous CVA, COPD, mild cognitive impairment, chronic kidney disease stage 3 (baseline creatinine 1.2. Baseline GFR 45) presenting to the ER today with discomfort affecting the right side of her abdomen. She has a G-tube for feedings. It sounds like her pain started last week when her care facility staff flushed her G2 with water and she felt a ?burning? feeling in her abdomen. She has feel like a her abdomen is bloating and things are not moving from her stomach. It sounds like she has had ventral hernia and right upper quadrant hernia for years. Along with that she also had some inflammation in her colon. This was apparently evaluated and treated at [facility]. A few years ago plan was for her to have surgical resection of part of her colon and repair of her hernias with mesh. However, it sounds like she had a stroke before that surgery could occur. Since then her surgeons have been reluctant to operate due to the medical complexity and risk of the surgery. History from the patient is a little bit vague but it sounds like she does have bulging hernias that are present every day for years. Sometimes the size of the bulge gets bigger and sometimes smaller. She usually can ?rub? her hernias and make them get smaller and feel better. Sometimes they get larger and are more painful. She says since last week both of her hernias in the mid upper abdomen and in the right upper quadrant been larger. She feels like her stomach is bloated and things are not moving very well. She also notes that she was getting some sharp pain in her stomach and in the right upper quadrant hernia after her stomach was flushed with water last week. She normally gets all of her meds and tube feeds through her G-tube and then after her tube feeds her care providers [facility] flush her tube with water. She has not been nauseous or vomiting. No fever. She tends to have soft bowel movements and he needs to get senna to stay normal. She did have a soft light brown stool this morning. Urination has been normal. No dysuria urgency. She also notes that she has a history of sacral skin breakdown and has had to see the wound clinic in the past. She started having a painful area on her right upper buttocks/sacrum yesterday that is more painful this morning.. Related Data Home Medications ?Medication ?Instructions ?Recorded ?Confirmed acetaminophen 500 mg tablet 1,000 mg feeding tube 3XD PRN 06/30/22 09/11/23 albuterol sulfate 2.5 mg/3 mL 1 mg inhalation Q4H PRN 06/30/22 09/11/23 (0.083 %) solution for nebulization albuterol sulfate 90 mcg/actuation 2 puff inhalation Q4H PRN 06/30/22 06/30/22 aerosol inhaler (Ventolin HFA) carboxymethylcellulose sodium 1 % 2 drp ophthalmic (eye) TID PRN 06/30/22 09/11/23 eye drops (Artificial Tears (carboxymethylcellulose)) fluticasone propionate 50 1 spray intranasal DAILY 06/30/22 09/11/23 mcg/actuation nasal spray,suspension hydrocortisone acetate 10 % (80 1 appful MI Q12H 06/30/22 09/11/23 mg) rectal foam (Cortifoam) loperamide 2 mg capsule 2 mg feeding tube QID PRN 06/30/22 09/11/23 melatonin 3 mg tablet 3 mg feeding tube QPM PRN 06/30/22 09/11/23 rivaroxaban 15 mg tablet (Xarelto) 15 mg PO DAILY 06/30/22 09/11/23 sodium chloride 0.65 % nasal spray 2 spray intranasal Q4H PRN 06/30/22 09/11/23 aerosol (Saline Nasal) sodium chloride-hypochlorous acid 1 irrig topical BID 06/30/22 07/25/22 0.033 % irrigation solution (Vashe) Keflex 07/25/22 omeprazole 2 mg-sodium bicarbonate ml PO DAILY 07/25/22 84 mg/mL oral suspension (Konvomep) albuterol 90 mcg/actuation aerosol mcg inhalation 09/11/23 inhaler ammonium lactate 12 % topical cream 1 applic topical DAILY PRN 09/11/23 09/11/23 cyclosporine 0.05 % eye drops in a 1 drp ophthalmic (eye) Q12H 09/11/23 09/11/23 dropperette (Restasis) eyelid cleanser combination 5 pad topical 09/11/23 (Cleansing Eyelid topical pads) loratadine 10 mg tablet (Claritin) 10 mg feeding tube DAILY 09/11/23 09/11/23 sennosides 8.6 mg tablet (senna) 17.2 mg feeding tube BID 09/11/23 09/11/23 Previous Rx's ?Medication ?Instructions ?Recorded doxycycline hyclate 100 mg tablet 100 mg PO BID 7 days #14 tabs 07/25/22 Allergies Allergy/AdvReac Type Severity Reaction Status Date / Time sulfamethoxazole Allergy Severe Verified 09/11/23 12:57 [From Septra] trimethoprim [From Septra] Allergy Severe Verified 09/11/23 12:57 atorvastatin [From Lipitor] Allergy Mild Edema Verified 09/11/23 12:57 baclofen Allergy Mild Verified 09/11/23 12:57 ciprofloxacin Allergy Mild Altered Verified 09/11/23 12:57 Sense of Taste lovastatin [From Mevacor] Allergy Mild edema Verified 09/11/23 12:57 metronidazole [From Flagyl] Allergy Mild Hives Verified 09/11/23 12:57 tramadol Allergy Mild Hives Verified 09/11/23 12:57 [facility] Medical History (Updated 09/11/23 @ 14:49 by Bahman Oropeza MD) Durable power of patent prosecution attorney in chart POLST (Physician Orders for Life-Sustaining Treatment) ?Z78.9 - Other specified health status (ICD-10) Hyperlipemia ?E78.5 - Hyperlipidemia, unspecified (ICD-10) Restless leg syndrome ?G25.81 - Restless legs syndrome (ICD-10) CKD (chronic kidney disease) stage 3, GFR 30-59 ml/min ?N18.30 - Chronic kidney disease, stage 3 unspecified (ICD-10) Mild cognitive impairment of uncertain or unknown etiology ?G31.84 - Mild cognitive impairment of uncertain or unknown etiology (ICD-10) Ventral hernia ?K43.9 - Ventral hernia without obstruction or gangrene (ICD-10) Diplopia ?H53.2 - Diplopia (ICD-10) Postprocedural adrenal medullary hypofunction ?E89.6 - Postprocedural adrenocortical (-medullary) hypofunction (ICD-10) Personal history of pulmonary embolism ?Z86.711 - Personal history of pulmonary embolism (ICD-10) Secondary hyperparathyroidism of renal origin ?N25.81 - Secondary hyperparathyroidism of renal origin (ICD-10) 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-10) GERD without esophagitis ?K21.9 - Gastro-esophageal reflux disease without esophagitis (ICD-10) Candidal stomatitis ?B37.0 - Candidal stomatitis (ICD-10) Pressure ulcer ?L89.90 - Pressure ulcer of unspecified site, unspecified stage (ICD-10) Ulcerative rectosigmoiditis with rectal bleeding ?K51.311 - Ulcerative (chronic) rectosigmoiditis with rectal bleeding (ICD-10) Dysphagia ?R13.10 - Dysphagia, unspecified (ICD-10) Anxiety ?F41.9 - Anxiety disorder, unspecified (ICD-10) CVA (cerebral vascular accident) ?I63.9 - Cerebral infarction, unspecified (ICD-10) COPD (chronic obstructive pulmonary disease) ?J44.9 - Chronic obstructive pulmonary disease, unspecified (ICD-10) Surgical History PEG (percutaneous endoscopic gastrostomy) status ?Z93.1 - Gastrostomy status (ICD-10) Social History Smoking Status: Never smoker Do you use any of these nicotine containing products: None Second hand tobacco smoke exposure: No How often do you have a drink containing alcohol: never How often do you have six or more drinks on one occasion: Never AUDIT-C Alcohol total score: 0 Non-prescribed substance use: denies use Exam Narrative: Exam Narrative: Constitutional: Appears well-developed and well-nourished. Alert. Conversant, long winded historian. Discussing 1 symptom will often lead into a discussion of other symptoms and things that happened years ago.. Non toxic. HENT: Head: Atraumatic. Nose: Nose normal. Mouth/Throat: Oral mucosa is clear and moist. no trismus. Pharynx normal. Tonsils symmetric. No tonsillar enlargement, erythema, or exudate. Eyes: Conjunctivae normal. EOM normal. Pupils equal, round, and reactive to light. No scleral icterus. Neck: Normal range of motion. Neck supple. No tracheal deviation present. Cardiovascular: Normal rate, regular rhythm. No gallop. No friction rub. No murmur heard. Symmetric radial artery pulses Pulmonary/Chest: Effort normal. No stridor. No respiratory distress. No wheezes. No rales. No rhonchi . No tenderness. Abdominal: Soft. Bowel sounds normal. She does have an apparent ventral hernia and also a possible right upper quadrant hernia. She has fairly large oval shaped masses in those 2 areas. Both of them are tender but both of them are soft. Both have present bowel sounds. No other abdominal distension. Non tympanic. G-tube present in the epigastrium/left upper quadrant and skin around the G-tube looks good. Musculoskeletal: RUE: Normal range of motion. No tenderness. No deformity LUE: Normal range of motion. No tenderness. No deformity RLE: Normal range of motion. No edema. No tenderness. No deformity LLE: Normal range of motion. No edema. No tenderness. No deformity Lymph: No cervical adenopathy. Neurological: Alert and oriented to person, place, and time. Normal strength. CN II-VII intact. No sensory deficit. GCS eye subscore is 4. GCS verbal subscore is 5. GCS motor subscore is 6. Normal coordination Skin: Skin is warm and dry. No rash noted. No pallor. Normal capillary refill. With female nurse present she was rolled for a buttock/sacral exam. There is a small bit of erythema on the right buttock but no signs of skin breakdown there. There is a larger area of erythema roughly 5 x 5 cm on the left buttock. In the upper medial portion of this redness there is a small 8-10mm area of skin breakdown but that does not penetrate through the dermis. There is a pea size cielo of reddish drainage on the overlying dressing but no active drainage. No purulent drainage. The skin around the area of skin breakdown is slightly indurated and tender. No palpable fluctuance. Psychiatric: Normal mood. Normal affect. Const: Vital Signs, click to edit/add: Vital Signs - 24 hr 09/11/23 11:02 09/11/23 12:59 09/11/23 13:00 Temperature 98.6 F Pulse Rate 82 83 Pulse Rate [Pulse Oximeter] 90 Respiratory Rate 18 Blood Pressure Blood Pressure [Le ft Upper Arm] 144/86 H Pulse Oximetry 97 93 98 Oxygen Delivery Me thod Room Air 09/11/23 13:01 09/11/23 13:15 09/11/23 13:30 Temperature Pulse Rate 82 74 76 Pulse Rate [Pulse Oximeter] Respiratory Rate Blood Pressure 119/56 L Blood Pressure [Le ft Upper Arm] Pulse Oximetry 99 97 95 Oxygen Delivery Me thod 09/11/23 13:31 09/11/23 13:45 09/11/23 14:00 Temperature Pulse Rate 75 75 77 Pulse Rate [Pulse Oximeter] Respiratory Rate Blood Pressure 115/59 L Blood Pressure [Le ft Upper Arm] Pulse Oximetry 96 95 94 Oxygen Delivery Me thod 09/11/23 14:03 09/11/23 14:15 Temperature Pulse Rate 70 85 Pulse Rate [Pulse Oximeter] Respiratory Rate Blood Pressure 131/82 Blood Pressure [Le ft Upper Arm] Pulse Oximetry 97 Oxygen Delivery Me thod Course Vital Signs Vital signs: Initial Vital Signs Temperature 98.6 F 09/11/23 11:02 Temperature Source Temporal Artery Scan 09/11/23 11:02 Pulse Rate 90 09/11/23 11:02 Respiratory Rate 18 09/11/23 11:02 Blood Pressure 144/86 H 09/11/23 11:02 Blood Pressure Mean 105 09/11/23 11:02 Blood Pressure Position Sitting 09/11/23 11:02 Pulse Oximetry 97 09/11/23 11:02 Oxygen Delivery Method Room Air 09/11/23 11:02 Vital Signs Temperature 98.6 F 09/11/23 11:02 Pulse Rate 90 09/11/23 11:02 Respiratory Rate 18 09/11/23 11:02 Blood Pressure 144/86 H 09/11/23 11:02 Pulse Oximetry 97 09/11/23 11:02 Oxygen Delivery Method Room Air 09/11/23 11:02 Temperature 98.6 F 09/11/23 11:02 Pulse Rate 85 09/11/23 14:15 Respiratory Rate 18 09/11/23 11:02 Blood Pressure 131/82 09/11/23 14:03 Pulse Oximetry 97 09/11/23 14:03 Oxygen Delivery Method Room Air 09/11/23 11:02 Medical Decision Making MDM Narrative Medical decision making narrative: 82-year-old female with a complex past medical history presenting to the ER today for abdominal pain, in particular upper abdominal pain in the epigastrium and right upper quadrant. She is also concerned she has a history of sacral ulcers requiring wound clinic referral, and has a new painful area on her right upper buttocks/sacrum. She has a known history of what sounds like a ventral hernia and a right upper quadrant hernia for years. Had previously been under consideration for surgical repair through the [facility] but then surgery was put off because she had a stroke a couple of years ago. She has apparently not been deemed a surgical candidate for the past couple of years. Also has a history of some sort of colitis and was going to have surgery for that. That surgery also was put off because of her stroke. She came to the ER today noting that her abdominal hernias are larger than normal and hurting more than normal. It is difficult for me to get a clear history from her how often the hernias are present and how often they hurt. It sounds like they are present almost all the time and hurt almost every day but have been worse than normal for the past week. CT imaging confirms a ventral hernia containing a loop of transverse colon. No evidence for any associated obstruction, strangulation, bowel wall edema, or ischemia. At this point no indication for emergent surgical intervention. Discussed with the patient that at this point no need for emergent surgical intervention but she should follow up outpatient with surgery to consider repair. She says she has consulted with surgeons at [facility] before they told that the risk of surgery would outweigh the benefit. Differential for her epigastric pain could also be gastritis or peptic ulcer disease. She has not had any recent bloody output from her G-tube or any black or bloody stools to suggest upper GI bleeding. No evidence for peripheral ulcer. Hemoglobin is normal at 14.2. Labs show elevated BUN at 50 however this is at her baseline or better than previous measurements. Creatinine 1.4 is up slightly from baseline of 1.2. Received IV fluids here in the ER. She has a chronic G-tube in place. It has been functioning normally. No sign of G tube malposition or gastric perforation or free air. LFTs and lipase are normal. She has had previous cholecystectomy. CT scan shows no dilation of the bile ducts. She apparently has a history of some form of colitis, possibly autoimmune. No clear signs of active colitis on CT scan today. Venous lactic acid normal. No evidence for bowel ischemia. She is off concerned about a sore area on her right upper buttocks/sacrum. There does appear to be some redness of the skin there and a very superficial area of epidermal breakdown but does not appear to have any ulcer or any tunneling even into her dermis. It has a small amount of nonpurulent drainage. No clear evidence for cellulitis at this time. White count normal. No indication to start antibiotics. Would recommend that she follow up with wound clinic. Lab Data Labs: Lab Results 09/11/23 09/11/23 09/11/23 Range/Units 11:27 11:58 12:00 WBC Cancelled 10.56 Corrected WBC Cancelled RBC Cancelled 5.32 H Hgb Cancelled 14.2 Hct Cancelled 46.4 MCV Cancelled 87 MCH Cancelled 27 MCHC Cancelled 31 L RDW Coeff of Gina Cancelled 16.3 H Plt Count Cancelled 214 Neut % (Auto) Cancelled 79.7 H Lymph % (Auto) Cancelled 10.3 L [place] % (Auto) Cancelled 7.6 Eos % (Auto) Cancelled 1.7 Baso % (Auto) Cancelled 0.2 Neut # (Auto) Cancelled 8.40 H Lymph # (Auto) Cancelled 1.10 [place] # (Auto) Cancelled 0.80 Eos # (Auto) Cancelled 0.18 Baso # (Auto) Cancelled 0.02 Abs Immat Gran (auto) Cancelled 0.05 Imm/Tot Granulo (auto) Cancelled 0.5 Sodium 141 (135-149) mmol/L Potassium 4.7 (3.6-5.1) mmol/L Chloride 106 (96-114) mmol/L Carbon Dioxide 26 (20-32) mmol/L Anion Gap 9 (7-15) mEq/L BUN 50 H (7-30) mg/dL Creatinine 1.4 (0.5-1.5) mg/dL Estimated Creat Clear 26.62 Estimated GFR 38 ml/min Glucose 107 (60-115) mg/dL Lactate Cancelled 1.3 Calcium 10.0 (8.4-10.6) mg/dL Total Bilirubin 0.6 (0.1-1.5) mg/dL AST 27 (12-35) U/L ALT 17 (4-35) U/L Alkaline Phosphatase 96 (40-150) U/L Total Protein 7.4 (6.0-8.3) g/dL Albumin 4.7 (3.3-5.0) g/dL Lipase 141 (23-300) U/L POC Creatinine 1.7 H (0.6-1.3) mg/dl Imaging Data CT scan - abdomen: Attestation: I have reviewed the pertinent imaging results. My impression: IMPRESSION: 1. Normal appearance of the percutaneous gastrostomy without complication seen. 2. Nonobstructed transverse colon in the anterior abdominal wall hernia. No bowel obstruction. 3. Unchanged appearance of the abdominal aorta with a maximum diameter 4.5 centimeters proximally. 4. Presumed adenopathy in the right upper retroperitoneum is stable since the previous exam. 5. Unchanged splenomegaly. ECG Data Attestation: I personally reviewed and interpreted this ECG as follows: Interpretation: Normal sinus rhythm Rate: 79 MI: 146 QRS axis: Normal. No pathologic Q-waves. ST segment/T wave: No ST segment elevation or depression QTc: 479 Discharge Plan Discharge Clinical Impression: Ventral hernia, Skin ulcer of sacrum Patient Disposition: Home, Self-Care Condition: Stable Instructions: Ventral Hernia Repair (DC) Additional Instructions: As we discussed, right now we suspect that your abdominal pain is being caused by your ventral hernia. Today there is not any sign of a emergency with hernia such as an obstruction or pinched loop of bowel. You do not need emergency surgery today. However you should follow-up with her surgeons the [facility] for a recheck. They can help you when of the time is best to repair your surgery and whether the risks of surgery are worth the benefit. However, if you have worsening pain in your abdomen, vomiting, bloody or black stool, bloody vomit, fever, or any problems, please come back to the ER right away to be rechecked. For the sore area on your sacrum, please follow-up with the wound clinic. you should receive a phone call from the wound clinic to set up a follow-up appointment. However you should also follow-up with your regular doctor to recheck the sore area on your sacrum within the next 3-4 days. If you have worsening pain, spreading redness, worsening swelling or drainage, please come back to the ER right away. Prescriptions: No Action albuterol sulfate 2.5 mg /3 mL (0.083 %) solution for nebulization 1 mg inhalation Q4H PRN loperamide 2 mg capsule 2 mg feeding tube QID PRN melatonin 3 mg tablet 3 mg feeding tube QPM PRN acetaminophen 500 mg tablet 1,000 mg feeding tube 3XD PRN albuterol sulfate [Ventolin HFA] 90 mcg/actuation HFA aerosol inhaler 2 puff inhalation Q4H PRN fluticasone propionate 50 mcg/actuation spray,suspension 1 spray INTRANASAL DAILY Saline Nasal 0.65 % aerosol,spray 2 spray INTRANASAL Q4H PRN Cortifoam 10 % (80 mg) foam 1 appful MI Q12H Xarelto 15 mg tablet 15 mg PO DAILY Vashe 0.033 % irrigation solution 1 irrig topical BID Artificial Tears (cmc) 1 % drops 2 drp ophthalmic (eye) TID PRN Konvomep 2-84 mg/mL suspension for reconstitution PO DAILY Keflex Rx Instructions: 500mg liquid tid doxycycline hyclate 100 mg tablet 100 mg PO BID 7 Days Qty: 14 0RF Hold Instructions: Order Change ammonium lactate 12 % cream 1 applic topical DAILY PRN loratadine [Claritin] 10 mg tablet 10 mg feeding tube DAILY Cleansing Eyelid Pads, Medicated topical cyclosporine [Restasis] 0.05 % dropperette 1 drp ophthalmic (eye) Q12H sennosides [senna] 8.6 mg tablet 17.2 mg feeding tube BID albuterol 90 mcg/actuation aerosol inhalation Follow Up/Referrals: Alfonzo Webb MD [Primary Care Provider] - Stand Alone Forms: [facility] Info Instructions
--- NOTE | 2023-09-11 11:21 | CRLHL7_ITS ---
For Patients: As a result of the Century Cures Act, medical imaging exams and procedure reports are released immediately into your electronic medical record. You may view this report before your referring provider. If you have questions, please contact your health care provider. INDICATION: Abdominal pain and bloating, uses G-tube for feeding. COMPARISON: 06/30/2022 TECHNIQUE: CT of the abdomen and pelvis with intravenous contrast. Multiplanar axial, coronal, and sagittal reformats were reconstructed. Contrast: 58 mL Isovue 370. FINDINGS: Lung bases: Bibasilar bronchiectasis with chronic scarring in the posterior dependent bases. Liver: Normal. No mass. Gallbladder and bile ducts: Cholecystectomy. No bile duct dilation. Pancreas: Diffuse pancreatic atrophy. Spleen: Spleen is at the upper limits of normal in size and measures 12.5 centimeters in length. This is about the same as the most recent prior exam. No discrete splenic lesion or mass. Patent splenic vasculature. Adrenal glands: The right adrenal gland is not discretely seen small left adrenal nodule measures about 1 centimeter in greatest dimension and is unchanged compared to prior. Kidneys: Significant bilateral renal parenchymal atrophy. Right renal cysts. No solid renal mass. No calculi. No urinary tract dilation. Urinary bladder: Normal. Pelvis: Pelvic floor relaxation. Streak artifact from the hip arthroplasty. No discrete mass seen. 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 Postoperative appearance of the infrarenal abdominal aorta. Partially thrombosed aneurysm with a maximum diameter of 2.9 centimeters. There are very heavy atherosclerotic vascular calcifications of the abdominal aorta and its major branches. Mesenteric and portal veins are patent. Bowel: Percutaneous gastrostomy appears well positioned within the gastric lumen. The stomach is decompressed. No dilated or inflamed small bowel or colon. Cecum is in the right upper quadrant. Appendectomy. Colonic diverticulosis. Moderate stool burden. Lymph nodes: Presumed large right upper retroperitoneal / kareem-cural lymph node is similar to the previous exam and measures 2.8 x 1.5 centimeters. Upper retroperitoneal aortocaval lymph node measures 2.1 x 1.4 centimeters and is similar to the previous exam. Peritoneum: No ascites or free air. Abdominal wall: Wide necked hernias in the right abdomen. The more superior hernia contains fat and a small portion of the left lobe of the liver. The larger more inferior hernia contains unobstructed transverse colon. Bones: Right hip arthroplasty. No acute fractures. No focal worrisome bone lesions. IMPRESSION: 1. Normal appearance of the percutaneous gastrostomy without complication seen. 2. Nonobstructed transverse colon in the anterior abdominal wall hernia. No bowel obstruction. 3. Unchanged appearance of the abdominal aorta with a maximum diameter 4.5 centimeters proximally. 4. Presumed adenopathy in the right upper retroperitoneum is stable since the previous exam. 5. Unchanged splenomegaly. Please note that all CT scans at this facility use dose modulation, iterative reconstruction, and/or weight-based dosing when appropriate to reduce radiation dose to as low as reasonably achievable. Dictated by Tianna Palomares MD @ 09/11/2023 1:47:25 PM (Electronically Signed)
[2023-09-11 12:04] LABS: Creatinine, Point-of-Care* 1.7 mg/dl (0.6-1.3)
[2023-09-11 12:21] LABS: Lactate* 1.3 mmol/L (0.5-1.9)
[2023-09-11 12:28] LABS: Chloride* 106 mmol/L (96-114)
[2023-09-11 12:29] LABS: Albumin* 4.7 g/dL (3.3-5.0); Potassium* 4.7 mmol/L (3.6-5.1); Sodium* 141 mmol/L (135-149)
[2023-09-11 12:30] LABS: Basophils Absolute Auto 0.02 K/uL (0.00-0.30); Basophils Percent Auto 0.2 % (0.0-3.0); Eosinophils Absolute Auto 0.18 K/uL (0.00-0.50); Eosinophils Percent Auto 1.7 % (0.0-7.0); Hematocrit 46.4 % (33.0-51.0); Hemoglobin* 14.2 gm/dL (12.0-16.0); Immature Granulocytes Abs Auto 0.05 K/uL (0.00-0.30); Immature Granulocytes Pct Auto 0.5 %; Lymphocytes Percent Auto 10.3 % (20-44); Mean Corpuscular HGB Conc 31 gm/dL (32-36); Mean Corpuscular Hemoglobin 27 pg (26-34); Mean Corpuscular Volume 87 fL (80-100); Monocytes Percent Auto 7.6 % (0.0-11.0); Neutrophils Percent Auto 79.7 % (42.0-72.0); Platelet Count* 214 K/uL (140-440); RDW Coefficient of Variation % 16.3 % (11.5-15.5); Red Blood Count 5.32 m/uL (4.00-5.20); White Blood Count* 10.56 K/uL (4.50-11.00)
[2023-09-11 12:31] LABS: Creatinine* 1.4 mg/dL (0.5-1.5); Est. Creatinine Clearance* 26.62; Estimated Glomerular Filt Rate 38 ml/min
[2023-09-11 12:32] LABS: Alanine Aminotransferase* 17 U/L (4-35); Alkaline Phosphatase* 96 U/L (40-150); Anion Gap 9 mEq/L (7-15); Aspartate Amino Transferase* 27 U/L (12-35); Bilirubin Total* 0.6 mg/dL (0.1-1.5); Blood Urea Nitrogen* 50 mg/dL (7-30); Carbon Dioxide* 26 mmol/L (20-32); Glucose* 107 mg/dL (60-115); Lipase* 141 U/L (23-300); Slide Review Reflex No; Total Protein* 7.4 g/dL (6.0-8.3)
--- NOTE | 2023-09-11 15:32 | ED.NURSE ---
[facility]S to transport pt to [facility] non-emergently via wheelchair.
[2023-09-11 17:14] LABS: Albumin* 4.4 g/dL (3.3-5.0)
[2023-09-11 17:15] LABS: Chloride* 106 mmol/L (96-114); Potassium* 4.8 mmol/L (3.6-5.1); Sodium* 141 mmol/L (135-149)
[2023-09-11 17:17] LABS: Alkaline Phosphatase* 95 U/L (40-150); Anion Gap 11 mEq/L (7-15); Aspartate Amino Transferase* 29 U/L (12-35); Bilirubin Total* 0.6 mg/dL (0.1-1.5); Carbon Dioxide* 24 mmol/L (20-32); Creatinine* 1.5 mg/dL (0.5-1.5); Est. Creatinine Clearance* 24.85; Estimated Glomerular Filt Rate 35 ml/min; Total Protein* 7.4 g/dL (6.0-8.3)
[2023-09-11 17:18] LABS: Alanine Aminotransferase* 17 U/L (4-35); Blood Urea Nitrogen* 51 mg/dL (7-30); Calcium* 10.3 mg/dL (8.4-10.6); Glucose* 108 mg/dL (60-115); Lipase* 164 U/L (23-300)
== END 2023-09-11 17:50 | disposition home or self-care (01) ==
PROVIDERS: Emergency Provider Emergency Medicine; PCP Family Medicine
DX: K43.9 Ventral hernia without obstruction or gangrene (principal); L89.150 Pressure ulcer of sacral region, unstageable
CPT/HCPCS: 36415; 74177; 80053; 82565; 83605; 83690; 85025; 93005; 99284; 99285; Q9967

== ENCOUNTER 2023-09-11 17:50 | Outpatient (CLI) | payer BC, SELFPAY | END 2023-09-11 17:51 | disposition home or self-care (01) | LOC: AMB 09-12 22:45 | PROVIDERS: PCP Family Medicine; Visit Provider Family Medicine | DX: R10.9 Unspecified abdominal pain (principal); Z99.3 Dependence on wheelchair | CPT/HCPCS: A0425; A0428 ==

== ENCOUNTER 2024-01-10 09:58 | Outpatient (CLI) | payer BC, SELFPAY | END 2024-01-10 09:59 | disposition home or self-care (01) | LOC: WOUND 09:58 | PROVIDERS: PCP Family Medicine; Visit Provider Nurse Practitioner Family | DX: L89.316 Pressure-induced deep tissue damage of right buttock (principal); R54 Age-related physical debility | CPT/HCPCS: G0463 ==

== ENCOUNTER 2024-03-29 16:43 | Outpatient (CLI) | payer BC, SELFPAY | END 2024-03-29 16:44 | disposition home or self-care (01) | LOC: AMB 04-03 15:17 | PROVIDERS: PCP Family Medicine; Visit Provider Family Medicine | DX: T17.898A Other foreign object in other parts of respiratory tract causing other injury, initial encounter (principal) | CPT/HCPCS: A0425; A0429 ==

== ENCOUNTER 2024-03-29 16:53 | Emergency (ER) | payer BC, SELFPAY ==
--- OUTSIDE RECORDS SUMMARY | 2024-03-29 16:54 | XMS_ITS | Clinical Summary ---
Author Organization [facility] Address [address] [place] [address]. [place] [address] Care Team Providers Care Neurosurgery Research Director Name Role Phone No Ref-Primary, Physician Primary Care Provider Neftaly Patrick MD Unavailable [phone]- [phone] Allergies Active Allergy Reactions Criticality Noted Date Comments Atorvastatin Swelling 11/12/2007 Baclofen Other (See Comments) 07/15/2015 somnolence Ciprofloxacin Other (See Comments) 06/10/2013 Stated everything tasted like metal. 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 Patient has identified Health Care Agent(s): Yes Add Health Care Agents: Yes Health Care Agent(s): Primary Health Care Agent: Elsa Truong Relationship: daughter /[phone] Secondary Health Care Agent: Sunny Zapata Relationship: son Conservator: Relationship: Phone: Guardian: Relationship: Phone: Patient has Advance Care Plan Documents (Health Care Directive, POLST): Yes Advance Care Plan Documents: Health Care Directive Patient has identified Specific Treatment Preferences: Yes Specific Treatment Preferences: a.) Code Status: CPR/Attempt Resuscitation Abdominal aortic aneurysm 11/14/2012 Overview (01/02/2018): Overview: Open abdominal aortic aneurysm repair on 11/13/13. GERD (gastroesophageal reflux disease) 1 Depression with anxiety 08/27/2009 Osteoarthritis of spine with radiculopathy, lumbosacral region 04/15/2007 Overview (01/02/2018): Overview: occasional vicodin use: if recurrent will need narcotic contract Chronic obstructive pulmonary disease 12/28/2005 Restless legs syndrome (RLS) 12/28/2005 Family History Medical History Relation Comments Cancer Brother 1 Substance Abuse Brother 1 Heart Disease Brother 2 Cancer Sister Relation Status Comments Brother 1 Brother 2 Sister Social History Tobacco Use Types Packs/Day Years Used Date Smoking Tobacco: Former Cigarettes 0.5 50 0 [birth year]/21/1963 - 06/20/2013 Alcohol Use Standard Drinks/Week Comments No 0 (1 standard drink = 0.6 oz pur e alcohol) PHQ-2 Answer Date Recorded PHQ-2 Score 2 01/02/2018 Adolescent Education Answer Date Record ed Getting School Help Needed Not on file 11/27 Comments Unknown Sex and Gender Information Value Date Recorded Sex Assigned at Not on file 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
--- OUTSIDE RECORDS SUMMARY | 2024-03-29 16:54 | XMS_ITS | Encounter Summary ---
Author Organization [facility] Address [address] [place] [address]. [place] [address] Care Team Providers Care Rehabilitation Case Coordinator Name Role Phone No Ref-Primary, Physician Primary Care Provider Neftaly Patrick MD Unavailable [phone]- [phone] Encounter Details Date Type Department Care Team (Late st Contact Info) Description 01/08/2018 [facility] Medical Advice [facility] [address] [id number] Neftaly Patrick MD [address] [place] [address] [phone] Social History Tobacco Use Types Packs/Day Years Used Date Smoking Tobacco: Former Cigarettes 0.5 50 0 06/21/1963 - 06/20/2013 Alcohol Use Standard Drinks/Week Comments No 0 (1 standard drink = 0.6 oz pur e alcohol) PHQ-2 Answer Date Recorded PHQ-2 Score 2 01/02/2018 Comments Unknown Sex and Gender Information Value Date Recorded Sex Assigned at Not on file 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
--- OUTSIDE RECORDS SUMMARY | 2024-03-29 16:54 | XMS_ITS | Clinical Summary ---
Author Organization [employer] [facility] Address [place], [place] [address] Care Team Providers Care Performing Artist Name Role Phone Pcp, No Primary Care Provider Neftaly Keys MD Unavailable [phone] Allergies Active Allergy Reactions Criticality Noted Date Comments Baclofen Behavioral Disturbances 07/15/2015 somnolence Ciprofloxacin Taste, Changes 06/10/2013 Stated everything tasted like metal. Metronidazole In Nacl (Iso-Os) Hives 10/05/2018 Cephalexin Hives,Itching 08/16/2022 Atorvastatin Edema 11/12/2007 Lovastatin Edema 11/12/2007 Sulfamethoxazole-Trime thoprim Renal Failure 10/09/2015 Tramadol Hives 08/07/2013 Medications hydrocortisone acetate 10% (Cortifoam) 10 % (80 mg) rectal foamIndications:[facility] er[facility] proctitis Insert 1 Applicatorful rectally two times daily. 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 Medications via: G Tube Supplies needed for: Pump Feedings: feeding pump, IV pole, feeding set, 60 cc syringes, drain sponges, backpack 1 Each 04/15/19 23 Active rivaroxaban (XARELTO) 15 mg tab tabletIndications:c ardioembolic CVA, akinetic LV apex with concern for LV thrombus Take 1 Tablet (15 mg) by mouth once daily with evening meal. 0 04/26/19 23 Active acetaminophen (TYLENOL) 325 mg tabletIndications:C erebrovascular accident (CVA), unspecified mechanism (HC) Take 2 Tablets (650 mg) by mouth every 4 hours if needed for Pain (For mild pain, fever, headache). Max acetaminophen dose: 4000mg in 24 hrs. 0 04/26/19 23 Active oxyCODONE (ROXICODONE) 5 mg immediate release tabletIndications:P haryngeal dysphagia Take 1 Tablet (5 mg) by mouth every 4 hours if needed for Pain. 10 Tablet 04/26/19 23 Active albuterol HFA (PRO-AIR; VENTOLIN; PROVENTIL) 90 mcg/actuation inhalerIndications: Reactive airway disease without complication, unspecified asthma severity, unspecified whether persistent Inhale 2 Puffs by mouth every 4 hours if needed for Shortness of Breath 1st choice or Wheezing 1st choice. 0 04/26/19 23 Active loperamide (IMODIUM) 2 mg capsuleIndications: Ulcerative rectosigmoiditis without complication (HC) Take 1 Capsule (2 mg) by mouth 4 times daily if needed for Diarrhea. Max 16 mg in 24 hrs. 40 Capsule 04/26/19 23 Active ondansetron (ZOFRAN ODT) 4 mg disintegrating tabletIndications:D ysphagia, unspecified type,Gastroesophage al reflux disease with esophagitis without hemorrhage Place 1 Tablet (4 mg) on the tongue every 8 hours if needed for Nausea/Vomiting. 0 04/26/19 23 Active sennosides (SENNA) 8.6 mg tabletIndications:U lcerative rectosigmoiditis without complication (HC) Take 2 Tablets (17.2 mg) by mouth 2 times daily if needed for Constipation. 0 04/26/19 23 Active melatonin 3 mg tabletIndications:C erebrovascular accident (CVA), unspecified mechanism (HC) Take 1 Tablet (3 mg) by mouth at bedtime if needed for Sleep for up to 1 dose. 0 04/26/19 23 Active eyelid cleanser combination 3 (OcuSoft Lid Scrub Plus) padmIndications:Ble pharitis of upper eyelids of both eyes, unspecified type Apply topically to affected area(s). 60 Each 6 01/20/20 23 Active Restasis 0.05 % ophthalmic emulsionIndications :Dry eyes, bilateral Instill one drop in each eye 2x/day. Please dispense 60 day supply. 60 Each 2 02/10/20 23 Active omeprazole 2 mg/mL suspension Administer 20 mg via G-tube once daily. Active LORazepam (Ativan) 0.5 mg tab Take 0.5 mg by mouth every 6 hours if needed. Active polyethylene glycoL (MIRALAX) 17 gram/scoop powder Mix 17 g in liquid then take by mouth once daily if needed. 01/04/20 24 Active simethicone chewable (MYLANTA GAS RELIEF; GAS X) 80 mg chewable tablet Chew 80 mg by mouth 4 times daily if needed. 09/29/19 24 Active NaCl 0.9% 0.9 % sodium chloride neb solution Inhale 1 Neb via a nebulizer. as needed for phlegm 01/10/20 24 Active busPIRone (BUSPAR) 5 mg tablet Take 5 mg by mouth two times daily. 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 Overview (12/14/2016): Flexible sigmoidoscopy 11/2016 - ulcerative colitis CKD (chronic kidney disease) stage 4, GFR 15-29 ml/min 05/04/2016 Overview (05/04/2016): Followed by [facility] Hyperlipidemia 03/11/2016 History of pulmonary embolism 10/03/2015 ACP (advance care planning) 11/14/2013 Overview (11/14/2013): Patient has identified Health Care Agent(s): Yes Add Health Care Agents: Yes Health Care Agent(s): Primary Health Care Agent: Elsa Truong Relationship: daughter /[phone] Secondary Health Care Agent: Sunny Zapata Relationship: son Conservator: Relationship: Phone: Guardian: Relationship: Phone: Patient has Advance Care Plan Documents (Health Care Directive, POLST): Yes Advance Care Plan Documents: Health Care Directive Patient has identified Specific Treatment Preferences: Yes Specific Treatment Preferences: a.) Code Status: CPR/Attempt Resuscitation Abdominal aortic aneurysm, s/p repair 11/14 Overview (11/19/2013): Open abdominal aortic aneurysm repair on 11/13/13. GERD (gastroesophageal reflux disease) 1 Depression with anxiety 08/27/2009 CHRONIC OBSTRUCTIVE PULMONARY DISEASE 12/28/2005 Restless legs syndrome (RLS) 12/28/2005 Resolved Problems Problem Noted Date Diagnosed Date Resolved Date Pain of left calf 05/05/2020 12/07/2020 Gallbladder disease 08/06/2018 12/08/19 21 Multifocal pneumonia 04/01/2018 019 Failure of outpatient treatment 04/01/2018 07/31/2018 Pressure injury of sacral region, stage 1 04/01/2018 07/31/2018 Acute renal failure superimp osed on stage 4 chronic kidney disease 04/01/2018 04/09/2018 Supratherapeutic INR 04/01/2018 019 Acute deep vein thrombosis ( DVT) of other specified vein of left lower extremity 02/27/2018 0 02/27/2018 Anticoagulation monitoring, INR range 2-3 02/27/2018 07/31/2018 Pancytopenia 02/05/2018 02/27/2018 Impaired mobility and ADLs 02/03/2018 0 07/31/2018 Generalized weakness 02/03/2018 019 Anemia 02/02/2018 07/31/2018 Malnutrition 02/02/2018 07/31/2018 Weight loss 02/02/2018 07/31/2018 Anxiety 03/14/2016 01/16/2017 Acute cystitis without hematuria 03/11/2016 01/16/2017 CKD (chronic kidney disease) stage 3, GFR 30-59 ml/min 12/24/2015 03/21/2016 Acute renal failure (ARF) 10/03/2015 CKD (chronic kidney disease), stage III 10/03/2015 12/24/2015 Pyelonephritis 10/03/2015 10/14/2015 Metabolic acidosis, normal anion gap (NAG) 10/03/2015 10/14/2015 Hyponatremia 10/03/2015 10/14/2015 Muscle spasm 07/15/2015 01/16/2017 Blood-tinged sputum 07/15/2015 10/14/19 16 Pulmonary emboli 06/18/2012 01/16/2017 Anticoagulation monitoring, INR range 2-3 06/18/2012 10/24/2013 half-way (current) use of anticoagulants 01/03/2011 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 12/20/2012 Spondylosis of unspecified s ite without mention of myelopathy 05/01/2007 12/20/2012 Disorders of sacrum 05/01/2007 12/21/19 13 Osteoarthritis of spine with radiculopathy, lumbosacral region 04/15/2007 07/31/2018 Overview (07/27/2012): occasional vicodin use: if recurrent will need narcotic contract Other and unspecified hyperlipidemia 12/28/2005 01/16/2017 Overview (04/17/2013): intolerant of statins, sub-optimal control with zetia COPD exacerbation 01/16/2017 Encounters Date Type Department Care Team Description 02/23/2024 10:50 AM STATE HISTORICAL SOCIETY DIRECTOR Office Visit [place] [address] [address] [place] [address] Savanna Rico, SANTOS Pain (tailbone pain when laying down, wondering about more cushion or what else can be done) 02/23/2024 10:13 AM STATE HISTORICAL SOCIETY DIRECTOR - 02/23/2024 11:59 PM STATE HISTORICAL SOCIETY DIRECTOR Hospital Encounter [facility] [address] [facility] [place] [address] Savanna Schneider, DO Gastrostomy tube in place (HC) 02/23/2024 9:00 AM STATE HISTORICAL SOCIETY DIRECTOR Office Visit [facility] [address] [place] [address] Savanna Schneider, Procedure (tube change) 02/22/2024 Travel 01/29/2024 Lab Requisition [facility] [phone] Dafne Carty NP from Last 3 Months Immunizations Name Administration Dates Next Due AMB Influenza, IIV3 (Age >=3 years)(Flu Clinic Only) 01/27/2009,12/10/2007 COVID-19 vaccine (Moderna 100mcg/0.5mL) PF, MDV 04/06/2020,03/09/2020 Influenza, High-dose Inactivated 024,11/19/2018,11/25/2017,11/05,12/10/2014,10/30/2013 Influenza, High-dose Quadriv alent Inactivated 12/13/2022 Influenza, IIV3 (Age >=3 years) 11/17/19 13,12/13/2011,12/27/2010,11/03,12/10/2007,12/22/2006,01/02/2006 ,12/08/2004,12/12/2003 Influenza, Inactivated AIIV4 (Age 65+ Years) Preserv Free 11/30/2021,12/07/2020,11/13/2019 Influenza, Inactivated IIV3 (Age 65+ Years) Preserv Free 11/28/2016 Pneumococcal Poly,23-Valent (Pneumovax) 01/04/2010 Pneumococcal conj 13-Valent (Prevnar 13) 12/18/2014 Pneumococcal conj 7-Valent (Prevnar 7) 4 RSV, Bivalent Vaccine Recons tituted (Abrysvo 120MCG/0.5mL) 12/15/2023 Tdap 01/04/2010 Zoster (Shingrix-RZV, recombinant) 11/19/2018, Zoster (Zostavax-ZVL, live) 02/15/2010 Family History Medical History Relation Name Comments Cancer Brother 3 LUNG Cancer-colon Brother 4 Alcohol/Drug Brother 5 Hypertension Brother 6 Cancer Daughter 2 cervical Cancer-breast Daughter 2 Cancer-breast Maternal Aunt Cancer-breast Maternal Grandmother Arthritis Mother PCN Heart Disease Other FAMILY H/O COR ONARY ARTERY DISEASE Arthritis Sister 3 PCN Diabetes Sister 4 Hypertension Son 2 Heart Disease Son 3 Relation Name Status Comments Brother 1 Alive x1 Brother 2 x7 Brother 3 Brother 4 Brother 5 Brother 6 Daughter 1 Alive Daughter 2 Father Maternal Aunt Maternal Grandfather Maternal Grandmother Mother Other Paternal Grandfather Paternal Grandmother Sister 1 x2 Sister 2 Alive Sister 3 Sister 4 Son 1 Alive Son 2 Son 3 Social History Tobacco Use Types Packs/Day Years Used Date Smoking Tobacco: Former Cigarettes 0.5 55 0 [birth year]02[birth year]1955 - 05/01/2010 Smokeless Tobacco: Never Tobacco Cessation:Counseling Given: Yes Alcohol Use Standard Drinks/Week Comments No 0 (1 standard drink = 0.6 oz pur e alcohol) PHQ-2 Answer Date Recorded PHQ-2 TOTAL SCORE 0 12/07/2020 Social Connections Answer Date Recorded Do you often feel lonely or isolated from those around you? 0 02/22/2024 Financial Resource Strain Answer Date R ecorded Difficulty of Paying Living Expenses 3 02/22/2024 Difficulty of Paying Living Expenses Not on file 02/22/2024 Food Insecurity Answer Date Recorded Do you worry your food will run out before you are able to buy more? 1 02/22/2024 Transportation Needs Answer Date Record ed Does lack of transportation keep you from medica l appointments? 1 02/22/2024 Does lack of transportation keep you from work, meetings or getting things that you need? 1 02/22/2024 Housing Stability Answer Date Recorded What is your housing situation today? 1 02/22/2024 Utilities Answer Date Recorded Do you have trouble paying f or utilities (for example, heat, electricity, water, phone)? 1 02/22/2024 Comments Unknown Sex and Gender Information Value Date Recorded Sex Assigned at Not on file Legal Sex Female 5:23 AM STATE HISTORICAL SOCIETY DIRECTOR Gender Identity Not on file Sexual Orientation Not on file Occupation Industry Job Start Date Job End Date retired Not on file Not on file Not on file Obstetrics History Para Term AB IAB SAB Ectopic Multiple Livin g Live Births 2 2 Date Outcome GA Total Labor Labor/2nd/3rd Weight Sex Type Anes PTL Dianna A1 A5 Name Clin Last Filed Vital Signs Vital Sign Reading Time Taken Comments Blood Pressure 108/60 02/23/2024 10:42 AM STATE HISTORICAL SOCIETY DIRECTOR Pulse 80 02/23/2024 10:42 AM STATE HISTORICAL SOCIETY DIRECTOR Temperature 36.7 C (98 F) 02/23/2024 10:42 AM STATE HISTORICAL SOCIETY DIRECTOR Respiratory Rate 13 07/14/2022 10:45 AM CDT Oxygen Saturation 96% 11/23/2023 3:37 PM CDT Inhaled Oxygen Concentration - - Weight 54.2 kg (119 lb 7.8 oz) 02/23/2024 10:42 AM STATE HISTORICAL SOCIETY DIRECTOR Height 160 cm (5' 2.99) 02/23/2024 10:42 AM STATE HISTORICAL SOCIETY DIRECTOR Body Mass Index 21.17 02/23/2024 10:42 AM STATE HISTORICAL SOCIETY DIRECTOR Plan of Treatment Upcoming Encounters Date Type Department Care Team (Late st Contact Info) Description 05/23/2024 3:30 PM CDT Office Visit [facility] [address] [place] [address] Savanna Schneider [address] [place] [address] Health Maintenance Due Date Last Done Comments Tetanus booster 01/05/2020 01/04/2010 Depression screening for age 12+ 12/07/2021 12/07/2020, 05/08/2020, 05/08/2020, Additional history exists Medicare Wellness for age 65+ 12/08/2021, 09/25/2019, 01/16/2012, Additional history exists BMI (ht and wt on same day) for age 18+ 02/22/2025 02/23/2024, 11/17/2022, 07/15/2021, Additional history exists DEXA/DXA scan for age 65+ Completed 06/15/2007 Tdap Completed 01/04/2010 Pneumococcal series for age 50+ Completed 12/18/2014, 01/04/2010, 12/12/2003 Zoster (shingles) series for age 50+ Completed 11/19/2018, 09/18/2018, 02/15/2010 COVID-19 vaccine series Completed 12/15/19, 06/20/2023, 12/13/2022, Additional history exists Influenza for age 65+ Completed 12/15/2023 , 12/13/2022, 11/30/2021, Additional history exists RSV vaccine for adults or Completed 12/15/2023 Medical Devices Implanted Type Area Quarter Doper Device Identifier Shelf Expiration Date Model / Serial / Lot Graft Knitted [id number] Stra Hemashield [id number] [facility] - [id number] Implanted:Qty: 1 on 11/13/2013 by Angelina Alatorre MD at [facility] [employer] 01/13/2018 [id number] / / [id number] Procedures Procedure Name Priority Date/Time Associated Diagnosis Comments XR GASTRO TUBE INJECTION NIURKA 02/23/2024 10:47 AM STATE HISTORICAL SOCIETY DIRECTOR Gastrostomy tube in place (HC) CBC WITH AUTO DIFFERENTIAL Routine 01/30/2024 7:31 AM STATE HISTORICAL SOCIETY DIRECTOR Weakness BASIC METABOLIC PANEL Routine 01/30/2024 7:31 AM STATE HISTORICAL SOCIETY DIRECTOR Weakness CBC WITH AUTO DIFFERENTIAL Routine 01/30/2024 7:31 AM STATE HISTORICAL SOCIETY DIRECTOR Weakness XR DXA BONE DENSITY 2 SITES AXIAL Routine 06/15/2007 Screening Osteoporosis from Last 3 Months or Most Recently Relevant to Health Maintenance Results * XR GASTRO TUBE INJECTION (02/23/2024 10:47 AM STATE HISTORICAL SOCIETY DIRECTOR) Anatomical Region Laterality Modality Abdomen Computed Radiogr aphy, Other 02/23/2024 11:1 9 AM STATE HISTORICAL SOCIETY DIRECTOR Narrative 02/23/2024 11:19 AM STATE HISTORICAL SOCIETY DIRECTOR For Patients: As a result of the Cures Act, medical imaging exams and procedure reports are released immediately into your electronic medical record. You may view this report before your referring provider. If you have questions, please contact your health care provider. INDICATION: Gas cross did meet tube in place. TECHNIQUE: Single-view abdomen. COMPARISON: 11/23/2023. FINDINGS: Contrast has been injected into the gastrostomy tube which lies intraluminal within the stomach. No position change when compared to the prior. There is downstream progression of contrast. Dictated by Pradeep Watkins MD @ 02/23/2024 11:19:29 AM (Electronically Signed) Procedure Note Heriberto Watkins MD - 02/23/2024 For Patients: As a result of the Cures Act, medical imagingexams and procedure reports are released immediately into your electronicmedical record. You may view this report before your referring provider.If you have questions, please contact your health care provider. INDICATION: Gas cross did meet tube in place. TECHNIQUE: Single-view abdomen. COMPARISON: 11/23/2023. FINDINGS: Contrast has been injected into the gastrostomy tube which liesintraluminal within the stomach. No position change when compared to theprior. There is downstream progression of contrast. Dictated by Pradeep Watkins MD @ 02/23/2024 11:19:29 AM (Electronically Signed) us Savanna Schneider DO FLUOROSCOPY Final Res ult * (ABNORMAL) CBC WITH AUTO DIFFERENTIAL (01/30/2024 7:31 AM STATE HISTORICAL SOCIETY DIRECTOR) WHITE BLOOD COUNT 7.4 4.5 - 11.0 thou/cu mm 01/30/2024 9:57 AM [facility] RED BLOOD COUNT 5.13 4.00 - 5.20 mil/cu mm 01/30/2024 9:57 AM [facility] HEMOGLOBIN 13.3 12.0 - 16.0 g/dL 01/30/2024 9:57 AM [facility] HEMATOCRIT 43.3 33.0 - 51.0 % 01/30/2024 9:57 AM [facility] MCV 84 80 - 100 fL 01/30/2024 9:57 AM [facility] MCH 25.9(L) 26.0 - 34.0 pg 01/30/2024 9:57 AM [facility] MCHC 30.7(L) 32.0 - 36.0 g/dL 01/30/2024 9:57 AM [facility] RDW 17.8(H) 11.5 - 15.5 % 01/30/2024 9:57 AM [facility] PLATELET COUNT 243 140 - 440 thou/cu mm 01/30/2024 9:57 AM [facility] MPV 12.4(H) 6.5 - 11.0 fL 01/30/2024 9:57 AM [facility] % NEUT 66.2 % 01/30/2024 9:57 AM [facility] % LYMPH 19.7 % 01/30/2024 9:57 AM [facility] % MONO 8.9 % 01/30/2024 9:57 AM [facility] % EOS 4.9 % 01/30/2024 9:57 AM [facility] % BASO 0.3 % 01/30/2024 9:57 AM [facility] ABSOLUTE NEUTROPHILS 4.9 1.7 - 7.0 thou/cu mm 01/30/2024 9:57 AM [facility] ABSOLUTE LYMPHOCYTES 1.5 0.9 - 2.9 thou/cu mm 01/30/2024 9:57 AM [facility] ABSOLUTE MONOCYTES 0.7 <0.9 thou/cu mm 01/30/2024 9:57 AM [facility] ABSOLUTE EOSINOPHILS 0.4 <0.5 thou/cu mm 01/30/2024 9:57 AM [facility] ABSOLUTE BASOPHILS 0.0 <0.3 thou/cu mm 01/30/2024 9:57 AM [facility] Blood BLOOD SPECIMEN / Unknown Butterfly / Unknown 01/30/2024 7:31 AM STATE HISTORICAL SOCIETY DIRECTOR 01/30/2024 9:27 AM STATE HISTORICAL SOCIETY DIRECTOR us Dafne Carty NP HEMATOLOGY Final Resul t [facility] [address] [facility] [place] [address] * (ABNORMAL) BASIC METABOLIC PANEL (01/30/2024 7:31 AM [facility]) SODIUM 144 136 - 145 mmol/L 01/30/2024 10:52 AM [facility] POTASSIUM 4.6 3.5 - 5.1 mmol/L 01/30/2024 10:52 AM [facility] CHLORIDE 104 98 - 107 mmol/L 01/30/2024 10:52 AM [facility] CO2,TOTAL 26 22 - 29 mmol/L 01/30/2024 10:52 AM [facility] ANION GAP 14 5 - 18 01/30/2024 10:52 AM [facility] GLUCOSE 126(H) 70 - 99 mg/dL 01/30/2024 10:52 AM [facility] CALCIUM 10.7(H) 8.8 - 10.4 mg/dL 01/30/2024 10:52 AM [facility] Comment: Reference ranges for this test were updated on 12/26/2023 to reflect our healthy population more accurately. Reference range changes are not retroactively applied to results, but previous results using the same methodology can be interpreted in the context of the new reference range. BUN 44(H) 8 - 23 mg/dL 01/30/2024 10:52 AM [facility] CREATININE 1.45(H) 0.50 - 0.90 mg/dL 01/30/2024 10:52 AM [facility] BUN/CREAT RATIO 30(H) 10 - 20 10:52 AM [facility] eGFR 36(L) >90 mL/min/1. 73m2 01/30/2024 10:52 AM [facility] Comment:As of 2021, eG FR is calculated by the CKD-EPI creatinine equation without race adjustment. eGFR can be influenced by muscle mass, exercise, and diet. The reported eGFR is an estimation only and is only applicable if the renal function is stable. Blood BLOOD SPECIMEN / Unknown Butterfly / Unknown 01/30/2024 7:31 AM STATE HISTORICAL SOCIETY DIRECTOR 01/30/2024 9:27 AM STATE HISTORICAL SOCIETY DIRECTOR us Dafne Carty SADDLE LINING STITCHER CHEMISTRY Final Resul t [facility] [address] [facility] [address] * XR DEXA BONE DENSITY 2 SITES (06/15/2007) Anatomical Region Laterality Modality Spine, HIPS, HIPL, HIPR Bone Den sitometry us Shanna Rodríguez MD DEXA Final Resu lt from Last 3 Months or Most Recently Relevant to Health Maintenance [place] [address] MEDICARE PART A HB ONLY BLUE PLUS SECURE BLUE [facility]UE PL[facility] SECURE BLUE [facility] MEDICARE PART B HB ONLY [facility] Member Subscriber Plan / Payer ( fective 2023-) Name:Erika Zapatasherry Laird Relation to Subscriber:Self Name:Xiomara Zapata Payer ID:[id number] (NAIC) Group ID:[id number] Type:Not on file Address: MAIL[address]: [id number] [place] [address] [place] [address] [place] [address] Advance Directives Documents on File Type Date Recorded 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 Project Coordination Specialist 03/11/2016 12:00 AM [place] [employer] IRRIGATOR 02/15/2012 Healthcare Directive 06/22/2011 HEALTH CARE DIRECTIVE - 12/29/2010 Healthcare Directive 12/30/2010 12:00 AM HEALTH CARE DIRECTIVE - DUPLICATE * Full Code (Latest Code Status on File) Date Activated Date Inactivated Comments 04/12/2022 3:22 AM 04/25/2022 1:42 PM Question Answer Comments Code Status Discussion: Unable to Assess Preferences, Provider to review later * Full Code Date Activated Date Inactivated Comments 04/08/2022 7:48 PM 04/12/2022 2:44 AM Question Answer Comments Code Status Discussion: Reviewed Preferences * Full Code Date Activated Date Inactivated Comments 05/05/2020 1:30 PM 05/07/2020 1:24 PM Question Answer Comments Code Status Discussion: Discussed * Full Code Date Activated Date Inactivated Comments 09/05/2018 11:17 AM 09/05/2018 7:11 PM Question Answer Comments Code Status Discussion: Discussed * Full Code Date Activated Date Inactivated Comments 04/01/2018 4:32 PM 04/04/2018 5:56 PM Would like a ttempt, has directives to take off vent if needed Question Answer Comments Code Status Discussion: Discussed Care Teams Performing Artist Relationship Specialty Start Date End Date Pcp, No . PCP - General 07/14/22 Neftaly Dunn MD [address] [place] [address] Consulting Physician Nephrology 07/26/22
--- OUTSIDE RECORDS SUMMARY | 2024-03-29 16:54 | XMS_ITS | Continuity of Care Document ---
Author Organization [facility] Address [address] [address] [place] [address] Phone Care Team Providers Care Rn Concurrent Review Name Role Phone Felix DUTTON, Elma Unavailable Unavailable Procedures Procedure Date Init Hosp-da E&m Mod Severity 6 Ugi Endo; W/bx 1/mx Ugi Endo; W/balloon Dilat Esop 16 Subsqt Hosp-da E&m Minr Compl 6 Subsqt Hosp-da E&m Minr Compl 6 Subsqt Hosp-da E&m Minr Compl 6 Init Hosp-da E&m Mod Severity 6 Advance Directives Directive Yes / No Effective Date File Name No Information Encounters Encounter Description Practice Location Reason(s) For Visit Diagnoses Date Provider Providers Copied on Encounter [facility], [address] [address], [place], [place], [id number], [place] tel:[phone] [facility] Dysphagia, unspecified type 6 Felix Wills. [address], [id number] , [place]. [phone] Referring Provider: Referral Self, USE FOR SELF REFERRALS. Init Hosp-da E&m Mod Severity [facility], [address] [address], [place], [place], [id number], [place] tel:[phone] [facility] No Information 6 Pretty Morris. [address] [facility], [address], [id number] , [place]. [phone] Referring Provider: Romie Palomino MD, [address] [place], [place], [address]. tel:[phone] Subsqt Hosp-da E&m Minr Compl [facility], [address] [address], [place], [place], [id number], tel:[phone] [facility] No Information Felix DUTTON Elma. [address] [facility], [facility] [address], [place], [id number] , [place]. [phone] Referring Provider: Romie Palomino MD, [address] [place], [address]. tel:[phone] Init Hosp-da E&m Mod Severity [facility], [address] [address], [place], [place], [id number], tel:[phone] [facility] No Information James MONGE May. [address] [facility], [facility] [address], [place], [place], [id number] , [place]. [phone] Referring Provider: Romie Palomino MD, [address] [place], [address]. tel:[phone] Family History Family Member Type Diagnosis Age At Onset No Information Payers Payer name Insurance type Covered democrat ID Authoriza tisamanta(s) Medicare NGS MB [id number] Social History Type Description Quantity Date Captured Comments Sex Female Smoking Status No Information Chief Complaint And Reason For Visit No Information Reason For Referral Reason For Referral No Information Plan Of Treatment Date Type Action Status Referral Ordered: EGD Appointment date/timeframe: -today ordered History Of Present Illness Encounter Date Complaint History Of Prese nt Illness No Information Functional Status Date Functional Assessmen t No Information Instructions Date Instruction Additional Infor mation No Information Assessments Type Assessment Date assessment Dysphagia, unspecified type Patient Care Teams Name Effective Dates (start - stop) Status Members No Information
[2024-03-29 17:03] VITALS: BP 101/77; PULSE 84; RESP 18; TEMP 36.4; O2SAT 92; BMI 19.0
--- NOTE | 2024-03-29 18:04 | ED_ITS ---
HPI - General Adult General Chief complaint: Unspecified Complaint, Adult Stated complaint: short of breath Time Seen by Provider: 03/29/24 17:05 History of Present Illness HPI narrative: This patient comes in seeking some kind of treatment to help her to better clear mucus from her airway. She states that she has coughed up some mucus plugs that sometimes she feels like it could sudheer airway. She did show me a few pictures of what she has coughed up. She states she does not have enough strength to clear her airway and off. She does arrive here with normal vital signs. She does not report any respiratory infection symptoms. She does have a G-tube in does not swallow anything by mouth. She has seen physicians at the [facility] who did perform some kind of procedure to hopefully help with this problem but she states that it has not helped. She has gone back there and they say there is nothing more they can do for her. Related Data Home Medications ?Medication ?Instructions ?Recorded ?Confirmed acetaminophen 500 mg tablet 1,000 mg feeding tube 3XD PRN 06/30/22 09/11/23 albuterol sulfate 2.5 mg/3 mL 1 mg inhalation Q4H PRN 06/30/22 09/11/23 (0.083 %) solution for nebulization albuterol sulfate 90 mcg/actuation 2 puff inhalation Q4H PRN 06/30/22 06/30/22 aerosol inhaler (Ventolin HFA) carboxymethylcellulose sodium 1 % 2 drp ophthalmic (eye) TID PRN 06/30/22 09/11/23 eye drops (Artificial Tears (carboxymethylcellulose)) fluticasone propionate 50 1 spray intranasal DAILY 06/30/22 09/11/23 mcg/actuation nasal spray,suspension hydrocortisone acetate 10 % (80 1 appful HI Q12H 06/30/22 09/11/23 mg) rectal foam (Cortifoam) loperamide 2 mg capsule 2 mg feeding tube QID PRN 06/30/22 09/11/23 melatonin 3 mg tablet 3 mg feeding tube QPM PRN 06/30/22 09/11/23 rivaroxaban 15 mg tablet (Xarelto) 15 mg PO DAILY 06/30/22 09/11/23 sodium chloride 0.65 % nasal spray 2 spray intranasal Q4H PRN 06/30/22 09/11/23 aerosol (Saline Nasal) sodium chloride-hypochlorous acid 1 irrig topical BID 06/30/22 07/25/22 0.033 % irrigation solution (Vashe) Keflex 07/25/22 omeprazole 2 mg-sodium bicarbonate ml PO DAILY 07/25/22 84 mg/mL oral suspension (Konvomep) albuterol 90 mcg/actuation aerosol mcg inhalation 09/11/23 inhaler ammonium lactate 12 % topical cream 1 applic topical DAILY PRN 09/11/23 09/11/23 cyclosporine 0.05 % eye drops in a 1 drp ophthalmic (eye) Q12H 09/11/23 09/11/23 dropperette (Restasis) eyelid cleanser combination 5 pad topical 09/11/23 (Cleansing Eyelid topical pads) loratadine 10 mg tablet (Claritin) 10 mg feeding tube DAILY 09/11/23 09/11/23 sennosides 8.6 mg tablet (senna) 17.2 mg feeding tube BID 09/11/23 09/11/23 Previous Rx's ?Medication ?Instructions ?Recorded doxycycline hyclate 100 mg tablet 100 mg PO BID 7 days #14 tabs 07/25/22 methylprednisolone 4 mg tablets in See Rx Instructions PO .COMPLEX 03/29/24 a dose pack (Medrol (Nitesh)) #21 ea Allergies Allergy/AdvReac Type Severity Reaction Status Date / Time sulfamethoxazole (From Allergy Severe Verified 09/11/23 12:57 Septra) trimethoprim (From Septra) Allergy Severe Verified 09/11/23 12:57 atorvastatin (From Lipitor) Allergy Mild Edema Verified 09/11/23 12:57 baclofen Allergy Mild Verified 09/11/23 12:57 ciprofloxacin Allergy Mild Altered Verified 09/11/23 12:57 Sense of Taste lovastatin (From Mevacor) Allergy Mild edema Verified 09/11/23 12:57 metronidazole (From Flagyl) Allergy Mild Hives Verified 09/11/23 12:57 tramadol Allergy Mild Hives Verified 09/11/23 12:57 Review of Systems Status of ROS: Reports: 10 or more systems reviewed and unremarkable except as noted in History and below Narrative: Constitutional: No fevers, no weight gain or loss. Eyes: No discharge. No vision changes. HENT: No congestion, no sore throat, no ear pain. Cardiovascular: No chest pain, no palpitations. Respiratory: No shortness of breath, no wheezes, no cough. She reports collection of mucus in her airway and has difficulty expelling it. Gastrointestinal: No abdominal pain, no vomiting, no diarrhea. Genitourinary: No dysuria, no hematuria. Musculoskeletal: Normal range of motion. Skin: No rashes, no pruritis. Neurological: No dizziness, weakness, sensory change, speech change. Endo/Heme/Allergies: No bruising or bleeding. No polydipsia. Pysch: no suicidality, no anxiety, no insomnia. All other systems reviewed and are negative. 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 POLST (Physician Orders for Life-Sustaining Treatment) ?Z78.9 - Other specified health status (ICD-10) Hyperlipemia ?E78.5 - Hyperlipidemia, unspecified (ICD-10) Restless leg syndrome ?G25.81 - Restless legs syndrome (ICD-10) CKD (chronic kidney disease) stage 3, GFR 30-59 ml/min ?N18.30 - Chronic kidney disease, stage 3 unspecified (ICD-10) Mild cognitive impairment of uncertain or unknown etiology ?G31.84 - Mild cognitive impairment of uncertain or unknown etiology (ICD-10) Ventral hernia ?K43.9 - Ventral hernia without obstruction or gangrene (ICD-10) Diplopia ?H53.2 - Diplopia (ICD-10) Postprocedural adrenal medullary hypofunction ?E89.6 - Postprocedural adrenocortical (-medullary) hypofunction (ICD-10) Personal history of pulmonary embolism ?Z86.711 - Personal history of pulmonary embolism (ICD-10) Secondary hyperparathyroidism of renal origin ?N25.81 - Secondary hyperparathyroidism of renal origin (ICD-10) 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-10) GERD without esophagitis ?K21.9 - Gastro-esophageal reflux disease without esophagitis (ICD-10) Candidal stomatitis ?B37.0 - Candidal stomatitis (ICD-10) Pressure ulcer ?L89.90 - Pressure ulcer of unspecified site, unspecified stage (ICD-10) Ulcerative rectosigmoiditis with rectal bleeding ?K51.311 - Ulcerative (chronic) rectosigmoiditis with rectal bleeding (ICD- 10) Dysphagia ?R13.10 - Dysphagia, unspecified (ICD-10) Anxiety ?F41.9 - Anxiety disorder, unspecified (ICD-10) CVA (cerebral vascular accident) ?I63.9 - Cerebral infarction, unspecified (ICD-10) COPD (chronic obstructive pulmonary disease) ?J44.9 - Chronic obstructive pulmonary disease, unspecified (ICD-10) Surgical History PEG (percutaneous endoscopic gastrostomy) status ?Z93.1 - Gastrostomy status (ICD-10) Social History Smoking Status: Never smoker Do you use any of these nicotine containing products: None Second hand tobacco smoke exposure: No How often do you have a drink containing alcohol: never How often do you have six or more drinks on one occasion: Never AUDIT-C Alcohol total score: 0 Non-prescribed substance use: denies use Exam Narrative: Exam Narrative: Constitutional: Well-developed, well-nourished, no acute distress. HEENT: Normocephalic, atraumatic. Neck: Normal range of motion. Nontender. Supple. Heart: Intact distal pulses. Lungs: No chest discomfort. No wheezes, rhonchi, or rales. Abdomen: Nontender. G-tube in place. Back: Normal range of motion. Extremities: Normal range of motion. No injury. Skin: Intact. No rash. Warm. No erythema or pallor. Neurologic: No altered sensation. No weakness. Alert and oriented. Psychiatric: No suicidality. No anxiety or depression. No insomnia. Nursing notes and vitals signs are reviewed. Const: Vital Signs, click to edit/add: Vital Signs - 24 hr 03/29/24 17:03 Temperature 97.6 F Pulse Rate [Pulse Oximeter] 84 Respiratory Rate 18 Blood Pressure [Ri ght Upper Arm] 101/77 Pulse Oximetry 92 Oxygen Delivery Me thod Room Air Course Vital Signs Vital signs: Initial Vital Signs Temperature 97.6 F 03/29/24 17:03 Temperature Source Temporal Artery Scan 03/29/24 17:03 Pulse Rate 84 03/29/24 17:03 Respiratory Rate 18 03/29/24 17:03 Blood Pressure 101/77 03/29/24 17:03 Blood Pressure Mean 85 03/29/24 17:03 Pulse Oximetry 92 03/29/24 17:03 Oxygen Delivery Method Room Air 03/29/24 17:03 Vital Signs Temperature 97.6 F 03/29/24 17:03 Pulse Rate 84 03/29/24 17:03 Respiratory Rate 18 03/29/24 17:03 Blood Pressure 101/77 03/29/24 17:03 Pulse Oximetry 92 03/29/24 17:03 Oxygen Delivery Method Room Air 03/29/24 17:03 Temperature 97.6 F 03/29/24 17:03 Pulse Rate 84 03/29/24 17:03 Respiratory Rate 18 03/29/24 17:03 Blood Pressure 101/77 03/29/24 17:03 Pulse Oximetry 92 03/29/24 17:03 Oxygen Delivery Method Room Air 03/29/24 17:03 Medical Decision Making MDM Narrative Medical decision making narrative: This patient comes in seeking some kind a help to clear mucus from her airway. Her vital signs are reassuring and her exam is normal with regard to her breathing. She states that she gets mucus plugs that she has to cough out and last night it was is specially difficult to do so. I initially recommended some kind of expectorant but she stated that she cannot take that as and states that it almost killed her in the past when she did. She does not take anything by mouth currently. She did receive dexamethasone 10 mg in her G-tube and I did provide Medrol Dosepak. Is possibility that the anti-inflammatory benefits will help her however I stated that she would need to follow-up with the behavioral school counselors and perhaps benefit from a bronchoscopy if needed. Discharge Plan Discharge Clinical Impression: Congestion of upper airway Patient Disposition: Home, Self-Care Condition: Unchanged Additional Instructions: Take medication as prescribed. Follow up with pulmonology for further options for evaluation and treatment. Return if worsening. Prescriptions: New methylprednisolone [Medrol (Nitesh)] 4 mg tablets,dose pack See Rx Instructions .ROUTE .COMPLEX Qty: 21 0RF Rx Instructions: orally per package directions No Action albuterol sulfate 2.5 mg /3 mL (0.083 %) solution for nebulization 1 mg inhalation Q4H PRN loperamide 2 mg capsule 2 mg feeding tube QID PRN melatonin 3 mg tablet 3 mg feeding tube QPM PRN acetaminophen 500 mg tablet 1,000 mg feeding tube 3XD PRN albuterol sulfate [Ventolin HFA] 90 mcg/actuation HFA aerosol inhaler 2 puff inhalation Q4H PRN fluticasone propionate 50 mcg/actuation spray,suspension 1 spray INTRANASAL DAILY Saline Nasal 0.65 % aerosol,spray 2 spray INTRANASAL Q4H PRN Cortifoam 10 % (80 mg) foam 1 appful HI Q12H Xarelto 15 mg tablet 15 mg PO DAILY Vashe 0.033 % irrigation solution 1 irrig topical BID Artificial Tears (cmc) 1 % drops 2 drp ophthalmic (eye) TID PRN Konvomep 2-84 mg/mL suspension for reconstitution PO DAILY Keflex Rx Instructions: 500mg liquid tid doxycycline hyclate 100 mg tablet 100 mg PO BID 7 Days Qty: 14 0RF ammonium lactate 12 % cream 1 applic topical DAILY PRN loratadine [Claritin] 10 mg tablet 10 mg feeding tube DAILY Cleansing Eyelid Pads, Medicated topical cyclosporine [Restasis] 0.05 % dropperette 1 drp ophthalmic (eye) Q12H sennosides [senna] 8.6 mg tablet 17.2 mg feeding tube BID albuterol 90 mcg/actuation aerosol inhalation Follow Up/Referrals: Alfonzo Webb MD [Primary Care Provider] - Stand Alone Forms: [facility] Info Instructions
[2024-03-29] MEDS: dexAMETHasone 10 MG/ML inj PO (18:17)
--- OUTSIDE RECORDS SUMMARY | 2024-03-29 18:19 | XMS_ITS | Continuity of Care Document ---
Author Organization [facility] Address [address] [address] [place] [address] Phone Care Team Providers Care Tar Pot Worker Name Role Phone Felix DUTTON, Elma Unavailable [...] Diagnoses Date Provider Providers Copied on Encounter [facility], [address] [address], [place], [place], [id number], [place] tel:[phone] [facility] Dysphagia, unspecified type 6 Felix Wills. [address], [id number] , [place]. [phone] Referring Provider: Referral Self, USE FOR SELF REFERRALS. Init Hosp-da E&m Mod Severity [facility], [address] [address], [place], [place], [address], [place] tel:[phone] [facility] No Information 6 Pretty Morris. [address]001 [facility], [address], [id number] , [place]. [phone] Referring Provider: Romie Palomino MD, [address] [place], [address]. tel:[phone] Subsqt Hosp-da E&m Minr Compl [facility], [address] [address], [place], [place], [id number], [phone] [facility] No Information Felix DUTTON Elma. [address] [facility], [facility] [address], [place], [id number] , [place]. [phone] Referring Provider: Romie Palomino MD, [address] [place], [address]. tel:[phone] Init Hosp-da E&m Mod Severity [facility], [address] [address], [place], [place], [address], tel:[phone] [facility] No Information James MONGE May. [address] [facility], [facility] [address], [place], [place], [id number] , [place]. [phone] Referring Provider: Romie Palomino MD, [address] [place], [address]. tel:[phone] Family History Family Member Type Diagnosis Age At Onset No Information Payers Payer name Insurance type Covered democrat ID Authoriza tisamanta(s) Medicare NGS MB [id number] Social History Type Description Quantity Date Captured [...]
--- OUTSIDE RECORDS SUMMARY | 2024-03-29 18:19 | XMS_ITS | Encounter Summary ---
Author Organization [facility] Address [address] [place] [address]. [place] [address] Care Team Providers Care Peoplesoft Analyst Name Role Phone No Ref-Primary, Physician Primary Care Provider Neftaly Patrick MD Unavailable [phone] Encounter Details Date Type Department Care Team (Late st Contact Info) Description 01/08/2018 My[facility] Medical Advice [facility] [address] [address] Neftaly Patrick MD [address] [place] [phone] Social History Tobacco Use Types Packs/Day Years Used Date Smoking Tobacco: Former Cigarettes 0.5 50 0 06/21/1963 - 06/20/2013 Alcohol Use Standard Drinks/Week Comments No 0 (1 standard drink = 0.6 oz pur e alcohol) PHQ-2 Answer Date Recorded PHQ-2 Score 2 01/02/2018 Comments Unknown Sex and Gender Information Value Date Recorded Sex Assigned at Not on file 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
--- OUTSIDE RECORDS SUMMARY | 2024-03-29 18:19 | XMS_ITS | Clinical Summary ---
Author Organization [employer] [facility] Address [place], [place] [address] Care Team Providers Care Couture Dressmaker Name Role Phone Pcp, No Primary Care Provider Neftaly Keys MD Unavailable [phone] Allergies Active Allergy Reactions Criticality Noted Date Comments Baclofen Behavioral Disturbances 07/15/2015 somnolence Ciprofloxacin Taste, Changes 06/10/2013 Stated everything tasted like metal. Metronidazole In Nacl (Iso-Os) Hives 10/05/2018 Cephalexin Hives,Itching 08/16/2022 Atorvastatin Edema 11/12/2007 Lovastatin Edema 11/12/2007 Sulfamethoxazole-Trime thoprim Renal Failure 10/09/2015 Tramadol Hives 08/07/2013 Medications hydrocortisone acetate 10% (Cortifoam) 10 % (80 mg) rectal foamIndications:[facility] erative proctitis Insert 1 Applicatorful rectally [...] Health Care Agent: Elsa Truong Relationship: daughter /[phone] Secondary Health Care Agent: Sunny Zapata Relationship: [...] Anticoagulation monitoring, INR range 2-3 06/18/2012 10/24/2013 skilled nursing (current) use of anticoagulants 01/03/2011 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 [...] Department Care Team Description 02/23/2024 10:50 AM MANUFACTURING ASSEMBLER Office Visit [place] [address] [facility] [place] [address] Savanna Rico, SANTOS Pain (tailbone pain when laying down, wondering about more cushion or what else can be done) 02/23/2024 10:13 AM MANUFACTURING ASSEMBLER - 02/23/2024 11:59 PM MANUFACTURING ASSEMBLER Hospital Encounter [facility] [address] [facility] [place] [address] Savanna Schneider, DO Gastrostomy tube in place (HC) 02/23/2024 9:00 AM MANUFACTURING ASSEMBLER Office Visit [facility] [address] [place] [address] Savanna Schneider, Procedure (tube change) 02/22/2024 Travel 01/29/2024 Lab Requisition [facility] [phone] Dafne Carty NP from Last 3 Months [...] on file Legal Sex Female 5:23 AM MANUFACTURING ASSEMBLER Gender Identity Not on file Sexual Orientation [...] Comments Blood Pressure 108/60 02/23/2024 10:42 AM MANUFACTURING ASSEMBLER Pulse 80 02/23/2024 10:42 AM MANUFACTURING ASSEMBLER Temperature 36.7 C (98 F) 02/23/2024 10:42 AM MANUFACTURING ASSEMBLER Respiratory Rate 13 07/14/2022 10:45 AM CDT Oxygen Saturation 96% 11/23/2023 3:37 PM CDT Inhaled Oxygen Concentration - - Weight 54.2 kg (119 lb 7.8 oz) 02/23/2024 10:42 AM MANUFACTURING ASSEMBLER Height 160 cm (5' 2.99) 02/23/2024 10:42 AM MANUFACTURING ASSEMBLER Body Mass Index 21.17 02/23/2024 10:42 AM MANUFACTURING ASSEMBLER Plan of Treatment Upcoming Encounters Date Type Department Care Team (Late st Contact Info) Description 05/23/2024 3:30 PM CDT Office Visit [facility] [address] [place] [address] Savanna Schneider [address] [place] [address] Health Maintenance Due Date Last Done Comments [...] Completed 12/15/2023 Medical Devices Implanted Type Area Cotton Bag Sewer Device Identifier Shelf Expiration Date Model / Serial / Lot Graft Knitted [id number] Stra [employer] [id number] [id number] Implanted:Qty: 1 on 11/13/2013 by Angelina Alatorre MD at [facility] [employer] 01/13/2018 [id number] / / [id number] Procedures Procedure Name Priority Date/Time Associated Diagnosis Comments XR GASTRO TUBE INJECTION NIURKA 02/23/2024 10:47 AM MANUFACTURING ASSEMBLER Gastrostomy tube in place (HC) CBC WITH AUTO DIFFERENTIAL Routine 01/30/2024 7:31 AM MANUFACTURING ASSEMBLER Weakness BASIC METABOLIC PANEL Routine 01/30/2024 7:31 AM MANUFACTURING ASSEMBLER Weakness CBC WITH AUTO DIFFERENTIAL Routine 01/30/2024 7:31 AM MANUFACTURING ASSEMBLER Weakness XR DXA BONE DENSITY 2 SITES AXIAL Routine 06/15/2007 Screening Osteoporosis from Last 3 Months or Most Recently Relevant to Health Maintenance Results * XR GASTRO TUBE INJECTION (02/23/2024 10:47 AM MANUFACTURING ASSEMBLER) Anatomical Region Laterality Modality Abdomen Computed Radiogr aphy, Other 02/23/2024 11:1 9 AM MANUFACTURING ASSEMBLER Narrative 02/23/2024 11:19 AM MANUFACTURING ASSEMBLER For Patients: As a result of the [...] CBC WITH AUTO DIFFERENTIAL (01/30/2024 7:31 AM MANUFACTURING ASSEMBLER) WHITE BLOOD COUNT 7.4 4.5 - 11.0 thou/cu mm 01/30/2024 9:57 AM [facility] RED BLOOD COUNT 5.13 4.00 - 5.20 mil/cu mm 01/30/2024 9:57 AM [facility] HEMOGLOBIN 13.3 12.0 - 16.0 g/dL 01/30/2024 9:57 AM [facility] HEMATOCRIT 43.3 33.0 - 51.0 % 01/30/2024 9:57 AM [facility] MCV 84 80 - 100 fL 01/30/2024 9:57 AM [facility] MCH 25.9(L) 26.0 - 34.0 pg 01/30/2024 9:57 AM [facility] MCHC 30.7(L) 32.0 - 36.0 g/dL 01/30/2024 9:57 AM [facility] RDW 17.8(H) 11.5 - 15.5 % 01/30/2024 9:57 AM [facility] PLATELET COUNT 243 140 - 440 thou/cu mm 01/30/2024 9:57 AM [facility] MPV 12.4(H) 6.5 - 11.0 fL 01/30/2024 9:57 AM [facility] % NEUT 66.2 % 01/30/2024 9:57 AM [facility] % LYMPH 19.7 % 01/30/2024 9:57 AM [facility] % MONO 8.9 % 01/30/2024 9:57 AM [facility] % EOS 4.9 % 01/30/2024 9:57 AM [facility] % BASO 0.3 % 01/30/2024 9:57 AM [facility] ABSOLUTE NEUTROPHILS 4.9 1.7 - 7.0 thou/cu mm 01/30/2024 9:57 AM [facility] ABSOLUTE LYMPHOCYTES 1.5 0.9 - 2.9 thou/cu mm 01/30/2024 9:57 AM [facility] ABSOLUTE MONOCYTES 0.7 <0.9 thou/cu mm 01/30/2024 9:57 AM [facility] ABSOLUTE EOSINOPHILS 0.4 <0.5 thou/cu mm 01/30/2024 9:57 AM [facility] ABSOLUTE BASOPHILS 0.0 <0.3 thou/cu mm 01/30/2024 9:57 AM [facility] Blood BLOOD SPECIMEN / Unknown Butterfly / Unknown 01/30/2024 7:31 AM MANUFACTURING ASSEMBLER 01/30/2024 9:27 AM MANUFACTURING ASSEMBLER us Dafne Carty NP HEMATOLOGY Final Resul t [facility] [address] [facility] [place] [address] * (ABNORMAL) BASIC METABOLIC PANEL (01/30/2024 7:31 AM RUST) SODIUM 144 136 - 145 mmol/L 01/30/2024 10:52 AM [facility] POTASSIUM 4.6 3.5 - 5.1 mmol/L 01/30/2024 10:52 AM [facility] CHLORIDE 104 98 - 107 mmol/L 01/30/2024 10:52 AM [facility] CO2,TOTAL 26 22 - 29 mmol/L 01/30/2024 10:52 AM [facility] ANION GAP 14 5 - 18 01/30/2024 10:52 AM [facility] GLUCOSE 126(H) 70 - 99 mg/dL 01/30/2024 10:52 AM [facility] CALCIUM 10.7(H) 8.8 - 10.4 mg/dL 01/30/2024 10:52 AM [facility] Comment: Reference ranges for this test were updated on 12/26/2023 to reflect our healthy population more accurately. Reference range changes are not retroactively applied to results, but previous results using the same methodology can be interpreted in the context of the new reference range. BUN 44(H) 8 - 23 mg/dL 01/30/2024 10:52 AM [facility] CREATININE 1.45(H) 0.50 - 0.90 mg/dL 01/30/2024 10:52 AM [facility] BUN/CREAT RATIO 30(H) 10 - 20 10:52 AM [facility] eGFR 36(L) >90 mL/min/1. 73m2 01/30/2024 10:52 AM [facility] Comment:As of 2021, eG FR is calculated by the CKD-EPI creatinine equation without race adjustment. eGFR can be influenced by muscle mass, exercise, and diet. The reported eGFR is an estimation only and is only applicable if the renal function is stable. Blood BLOOD SPECIMEN / Unknown Butterfly / Unknown 01/30/2024 7:31 AM MANUFACTURING ASSEMBLER 01/30/2024 9:27 AM MANUFACTURING ASSEMBLER us Dafne Carty VAULT INSTALLER CHEMISTRY Final Resul t [facility] [address] [place] [id number] * XR DEXA BONE DENSITY 2 SITES (06/15/2007) Anatomical Region Laterality Modality Spine, HIPS, HIPL, HIPR Bone Den sitometry us Shanna Rodríguez MD DEXA Final Resu lt from Last 3 Months or Most Recently Relevant to Health [place] [address] MEDICARE PART A HB ONLY BLUE PLUS SECURE BLUE [facility] [place] SECURE BLUE [facility] [place]IC[place] PART B HB ONLY [facility] Member Subscriber Plan / Payer ( fective 2023-) Name:Erika Zapatasherry Laird Relation to Subscriber:Self Name:Xiomara Zapata Payer ID:[id number] (NAIC) Group ID:[id number] Type:Not on file Address: MAILSTOP: [id number] [place] [address] [place] [address] [place] [id number] Advance Directives Documents on File Type Date Recorded Patient Gate Services Supervisor Expl anation Power of Production Helper 03/11/2016 12:00 AM [place] R OF STRAIGHT TOOTH GEAR GENERATOR OPERATOR 02/15/2012 Healthcare Directive 06/22/2011 HEALTH CARE DIRECTIVE [...] Comments Code Status Discussion: Discussed Care Teams Couture Dressmaker Relationship Specialty Start Date End Date Pcp, No . PCP - General 07/14/22 Neftaly Dunn MD [address] [place] [address] [place] [address] Consulting Physician Nephrology 07/26/22
--- OUTSIDE RECORDS SUMMARY | 2024-03-29 18:19 | XMS_ITS | Clinical Summary ---
Author Organization [place] Address [address] [place] [address]. [place] [address] Care Team Providers Care Social Contact Worker Name Role Phone No Ref-Primary, Physician Primary Care Provider Neftaly Patrick MD Unavailable [phone] Allergies Active Allergy Reactions Criticality Noted Date [...] Health Care Agent: Elsa Truong Relationship: daughter /[phone] Secondary Health Care Agent: Sunny Zapata Relationship: [...] on file Legal Sex Female 4:02 AM TRAIN STATION AGENT Gender Identity Not on file Sexual Orientation Not on file Plan of Treatment Not on file Insurance MEDICARE MEDICARE Care Teams Social Contact Worker Relationship Specialty Start Date End Date No Ref-Primary, Physician PCP - General 09/26/17 Neftaly Patrick MD [address] [place] [phone] Otolaryngology 09/27/17
[2024-03-29 18:46] VITALS: TEMP -5.5; TEMP 22
== END 2024-03-29 18:35 | disposition home or self-care (01) ==
LOC: ED 18:17
PROVIDERS: Emergency Provider Emergency Medicine Emergency Medical Services; PCP Family Medicine
DX: J06.9 Acute upper respiratory infection, unspecified (principal)
CPT/HCPCS: 99283; 99284; J1100

== ENCOUNTER 2024-06-04 18:03 | Outpatient (REF) | payer BC, SELFPAY ==
[2024-06-04 20:52] LABS: Appearance Urine Clear (Clear); Bilirubin Urine Negative (Negative); Blood Urine Negative (Negative); Color Urine Yellow (Yellow); Glucose Urine Negative (Negative); Ketones Urine Negative (Negative); Leukocyte Esterase Urine Negative (Negative); Nitrite Urine Negative (Negative); Protein Urine 2+ (Negative); Specific Gravity Urine 1.015 (1.000-1.030); Urobilinogen Urine 0.2 (0.2-1.0); pH Urine 7.5 (5.0-8.5)
[2024-06-04 20:55] LABS: RBC Urine 0-2 (0-2); WBC Urine 0-2 (0-5)
== END 2024-06-04 18:04 | disposition home or self-care (01) ==
LOC: NPINS 18:03
PROVIDERS: PCP Family Medicine; Visit Provider Nurse Practitioner Gerontology
DX: R10.9 Unspecified abdominal pain (principal)
CPT/HCPCS: 81001; 87086

== ENCOUNTER 2024-12-13 20:58 | Outpatient (REF) | payer BC, SELFPAY ==
[2024-12-13 23:40] LABS: Appearance Urine Clear (Clear)
--- OUTSIDE RECORDS SUMMARY | 2024-12-14 00:14 | XMS_ITS | Clinical Summary ---
Author Organization [employer] [facility] Address [address] [place] [address] Care Team Providers Care Bilingual Operator Name Role Phone Pcp, No Primary Care Provider UnavailNeftaly Ferro MD Unavailable [phone] Allergies Active Allergy Reactions Criticality Noted Date Comments Baclofen Behavioral Disturbances 07/15/2015 somnolence Ciprofloxacin Taste, Changes 06/10/2013 Stated everything tasted like metal. Metronidazole In Nacl (Iso-Os) Hives 10/05/2018 Cephalexin Hives,Itching 08/16/2022 Atorvastatin Edema 11/12/2007 Lovastatin Edema 11/12/2007 Sulfamethoxazole-Trime thoprim Renal Failure 10/09/2015 Tramadol Hives 08/07/2013 Medications hydrocortisone acetate 10% (Cortifoam) 10 % (80 mg) rectal foamIndications:[facility] erative proctitis Insert 1 Applicatorful rectally [...] complication, unspecified asthma severity, unspecified whether persistent (HC) Inhale 2 Puffs by mouth every 4 [...] mouth two times daily. 02/20/19 25 Active cetirizine (ZyrTEC) 10 mg tabletIndications:A llergic rhinitis, unspecified seasonality, unspecified trigger Take 1 Tablet (10 mg) by mouth once daily. 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 [...] Encounters Date Type Department Care Team Description 10/10/2024 3:33 PM CDT - 10/10/2024 11:59 PM CDT Hospital Encounter [facility] [address] [place] [address] Savanna Schneider DO Gastrostomy tube in place (HC) 10/10/2024 2:30 PM CDT Office Visit [facility] [address] [place] [address] Savanna Schneider DO Procedure (Tube change) 10/10/2024 Travel 10/05/2024 Travel from Last 3 Months Immunizations Immunization Administration Dates Next Due AMB Influenza, IIV3 [...] on file Legal Sex Female 5:23 AM DIRECTOR OF STRATEGIC PROGRAMS Gender Identity Not on file Sexual Orientation [...] Sign Reading Time Taken Comments Blood Pressure 126/71 07/18/2024 2:29 PM CDT Pulse 84 07/18/2024 2:29 PM CDT Temperature 36.7 C (98 F) 02/23/2024 10:42 AM DIRECTOR OF STRATEGIC PROGRAMS Respiratory Rate 13 07/14/2022 10:45 AM CDT Oxygen Saturation 96% 07/18/2024 2:29 PM CDT Inhaled Oxygen Concentration - - Weight 49.2 kg (108 lb 6.4 oz) 07/18/2024 2:29 P M CDT Height 160 cm (5' 2.99) 02/23/2024 10:42 AM DIRECTOR OF STRATEGIC PROGRAMS Body Mass Index 19.21 02/23/2024 10:42 AM DIRECTOR OF STRATEGIC PROGRAMS Plan of Treatment Upcoming Encounters Date Type Department Care Team (Late st Contact Info) Description 01/02/2025 3:00 PM DIRECTOR OF STRATEGIC PROGRAMS Office Visit [address] [address] Savanna Schneider, [address] [address] Health Maintenance Due Date Last Done Comments Tetanus booster 01/05/2020 01/04/2010 Depression screening for age 12+ 12/07/2021 12/07/2020, 05/08/2020, 05/08/2020, Additional history exists Medicare Wellness for age 65+ 12/08/2021 12/07/2020, 09/25/2019, 01/16/2012, Additional history exists Influenza Vaccine (#1) 2024 , 11/30/2021, 12/07/2020, Additional history exists BMI (ht and wt on same day) for age 18+ 02/22/2025 02/23/2024, 11/17/2022, 07/15/2021, Additional history exists DEXA/DXA scan for age 65+ Completed 06/15/2007 Pneumococcal series for age 50+ Completed 12/18/2014, 01/04/2010, 12/12/2003 Zoster (shingles) series for age 50+ Completed 11/19/2018, 09/18/2018, 02/15/2010 RSV vaccine for adults or Completed 12/15/2023 COVID-19 vaccine series Completed 07/04/19, 12/15/2023, 06/20/2023, Additional history exists Hepatitis B series for 19+ Aged Out N o longer eligible based on patient's age to complete this topic Medical Devices Implanted Type Area Signals Collector/Analyst Device Identifier Shelf Expiration Date Model / Serial / Lot Graft Knitted [id number] Stra Ember [id number] [facility] - [id number] Implanted:Qty: 1 on 11/13/2013 by Angelina Alatorre MD at [facility] [employer] 01/13/2018 [id number] / / [id number] Procedures Procedure Name Priority Date/Time Associated Diagnosis Comments XR GASTRO TUBE INJECTION Routine 10/10/2024 4:14 PM CDT Gastrostomy tube in place (HC) XR DXA BONE DENSITY 2 SITES AXIAL Routine 06/15/2007 Screening Osteoporosis from Last 3 Months or Most Recently Relevant to Health Maintenance Results * XR GASTRO TUBE INJECTION (10/10/2024 4:14 PM CDT) Anatomical Region Laterality Modality Abdomen Computed Radiogr aphy 10/11/2024 8:42 AM CDT Narrative 10/11/2024 8:42 AM CDT For Patients: As a result of the Cures Act, medical imaging exams and procedure reports are released immediately into your electronic medical record. You may view this report before your referring provider. If you have questions, please contact your health care provider. INDICATION: Check gastrostomy tube placement. TECHNIQUE: Two view abdomen. COMPARISON: 08/22/2024. FINDINGS: Contrast is injected through the percutaneous gastrostomy tube which is intraluminal. Contrast is present within the stomach and duodenum. No evidence of extravasation. Bowel-gas pattern nonspecific. Dictated by Pradeep Watkins MD @ 10/11/2024 8:42:39 AM (Electronically Signed) Procedure Note Heriberto Watkins MD - 10/11/2024 For Patients: As a result of the Cures Act, medical imagingexams and procedure reports are released immediately into your electronicmedical record. You may view this report before your referring provider.If you have questions, please contact your health care provider. INDICATION: Check gastrostomy tube placement. TECHNIQUE: Two view abdomen. COMPARISON: 08/22/2024. FINDINGS: Contrast is injected through the percutaneous gastrostomy tube which isintraluminal. Contrast is present within the stomach and duodenum. Noevidence of extravasation. Bowel-gas pattern nonspecific. Dictated by Pradeep Watkins MD @ 10/11/2024 8:42:39 AM (Electronically Signed) Savanna Schneider DO FLUOROSCOPY Final Res ult * XR DEXA BONE DENSITY 2 SITES (06/15/2007) Anatomical Region Laterality Modality Spine, HIPS, HIPL, HIPR Bone Den sitometry Shanna Rodríguez MD DEXA Final Resu lt from Last 3 Months or Most Recently Relevant to Health Maintenance Insurance MEDICARE PART A HB ONLY [facility] BLUE PLUS SECURE BL[facility] MEDIC[facility] PART B HB ONLY BLUEPLUS [facility]URE[facility]UE [facility] Member Subscriber Plan / Payer ( fective 2023-) Name:ZapataErikann R Relation to Subscriber:Self Name:Xiomara Zapata Eitan Payer ID:[id number] (NAIC) Group ID:[id number] Type:Not on file Address: MAILSTOP: [id number] [place] [address] MEDICARE PPS C/O ELSA CANCINO [address] [place] [id number] Advance Directives Documents on File Type Date Recorded Patient Professor Of Visual Arts Expl anation Power of Type Inspector 03/11/2016 12:00 AM [place] R OF OUTCOMES SPECIALIST 02/15/2012 Healthcare Directive 06/22/2011 HEALTH CARE DIRECTIVE [...] Comments Code Status Discussion: Discussed Care Teams Bilingual Operator Relationship Specialty Start Date End Date Pcp, No . PCP - General 07/14/22 Neftaly Dunn MD . Consulting Physician Nephrology 07/26/22
--- OUTSIDE RECORDS SUMMARY | 2024-12-14 00:14 | XMS_ITS | Clinical Summary ---
Author Organization [place] Address [address] [place] [address]. [place] [address] Care Team Providers Care Collision Estimator Name Role Phone No Ref-Primary, Physician Primary Care Provider Neftaly Patrick MD Unavailable [phone] Allergies Active Allergy Reactions Criticality Noted Date [...] Health Care Agent: Elsa Truong Relationship: daughter /[phone] Secondary Health Care Agent: Sunny Zapata Relationship: [...] on file Legal Sex Female 4:02 AM WEBMASTER Gender Identity Not on file Sexual Orientation Not on file Plan of Treatment Not on file Insurance MEDICARE MEDICARE Care Teams Collision Estimator Relationship Specialty Start Date End Date No Ref-Primary, Physician PCP - General 09/26/17 Neftaly Patrick MD [address] [place] [phone] Otolaryngology 09/27/17
--- OUTSIDE RECORDS SUMMARY | 2024-12-14 00:14 | XMS_ITS | Encounter Summary ---
Author Organization [facility] Address [address] [place] [address]. [place] [address] Care Team Providers Care Commercial Real Estate Agent Name Role Phone No Ref-Primary, Physician Primary Care Provider Neftaly Patrick MD Unavailable [phone] Encounter Details Date Type Department Care Team (Late st Contact Info) Description 01/08/2018 MyC Medical Advice [facility] [address] [address] Neftaly Patrick MD [address] [place] [phone] Social History Tobacco Use Types Packs/Day Years Used Date Smoking Tobacco: Former Cigarettes 0.5 50 0 06/21/1963 - 06/20/2013 Alcohol Use Standard Drinks/Week Comments No 0 (1 standard drink = 0.6 oz pur e alcohol) PHQ-2 Answer Date Recorded PHQ-2 Score 2 01/02/2018 Comments Unknown Sex and Gender Information Value Date Recorded Sex Assigned at Not on file Legal Sex Female 4:02 AM APPLICATION COORDINATOR Gender Identity Not on file Sexual Orientation Not on file documented as of this encounter Plan of Treatment Not on file documented as of this encounter Visit Diagnoses Not on filedocumented in this encounter Care Teams Commercial Real Estate Agent Relationship Specialty Start Date End Date No Ref-Primary, Physician PCP - General 09/26/17 Neftaly Patrick MD [address] [place] [address] Otolaryngology 09/27/17 documented as of this encounter
== END 2024-12-13 20:59 | disposition home or self-care (01) ==
LOC: NPINS 20:58
PROVIDERS: PCP Family Medicine; Visit Provider Nurse Practitioner Gerontology
DX: R10.9 Unspecified abdominal pain (principal); R39.15 Urgency of urination
CPT/HCPCS: 81001; 87086

== ENCOUNTER 2025-01-10 15:44 | Outpatient (CLI) | payer BC, SELFPAY ==
--- NOTE | 2025-01-10 16:00 | CRLHL7_ITS ---
For Patients: As a result of the Century Cures Act, medical imaging exams and procedure reports are released immediately into your electronic medical record. You may view this report before your referring provider. If you have questions, please contact your health care provider. INDICATION: Pelvic and coccyx pain. COMPARISON: 11 September 2023. TECHNIQUE: Noncontrast images. FINDINGS: Chronic abdominal wall midline hernia with nonobstructed transverse colon within the defect. Hernia sac extends above the field of view. Moderate formed stool throughout a redundant colon suggests chronic constipation. Diverticula of the left colon. Prominent atherosclerosis diffusely through the aorta and iliacs. Right hip prosthesis. No periprosthetic fracture or osteolysis appreciated. Mild osteoarthritis left hip. No joint effusion. Normal for age sacroiliac joints and symphysis pubis. Anatomic lumbosacral and sacrococcygeal alignment. Osteopenia diffusely. No definitive fracture or bone lesion. IMPRESSION: 1. No pelvic fracture or bone lesion. Osteopenia somewhat limiting. 2. Minor osteoarthritis left hip. Please note that all CT scans at this facility use dose modulation, iterative reconstruction, and/or weight-based dosing when appropriate to reduce radiation dose to as low as reasonably achievable. Dictated by Say Garner MD @ 01/13/2025 11:53:10 AM (Electronically Signed)
== END 2025-01-10 15:45 | disposition home or self-care (01) ==
LOC: CT 15:45
PROVIDERS: PCP Family Medicine; Visit Provider Nurse Practitioner Gerontology
DX: R10.20 Pelvic and perineal pain unspecified side (principal); K42.9 Umbilical hernia without obstruction or gangrene; M16.12 Unilateral primary osteoarthritis, left hip; Z96.641 Presence of right artificial hip joint; M81.0 Age-related osteoporosis without current pathological fracture; K59.00 Constipation, unspecified; K57.30 Diverticulosis of large intestine without perforation or abscess without bleeding; I70.90 Unspecified atherosclerosis
CPT/HCPCS: 72192